=== PATIENT | female | born 1960 | race Caucasian/White ===

== ENCOUNTER 2019-10-20 05:22 | Emergency (ER) | payer OTHER, SELFPAY ==
[2019-10-20 05:30] VITALS: BP 158/52; PULSE 95; RESP 18; TEMP 36.5; O2SAT 100
--- NOTE | 2019-10-20 05:32 | ED.ALLEREA ---
HPI - Allergic Reaction General Chief complaint: Allergic Reaction Stated complaint: ITCHING Time Seen by Provider: 10/20/19 05:27 Source: patient Mode of arrival: ambulatory Limitations: no limitations History of Present Illness HPI narrative: Patient is a 59-year-old female who presents to the emergency department with complaint of itching. Patient had onset of diffuse itching approximately 3 hours ago. Patient took Paxil and thinks perhaps that may have caused her itching. Patient was started on Paxil by Dr. Banuelos for her anxiety at her recent appointment. Patient took her first dose early this morning. Patient reports having been on Paxil for approximately 10 years previously for her anxiety and was recently restarted on the medication. Patient denies any rash, respiratory symptoms, nausea/vomiting, lip or throat swelling. Patient denies any other environmental exposures. She reports she is taking [id number] treatment for a yeast infection, but it is medication she has also used in the past without issues as well. Patient did not try Benadryl or other medication prior to coming to the emergency department. complaint: other (itching) Onset (ago): hour(s) Exposure: medication Symptoms: itching Treatment prior to arrival: none Previous Allergic Reaction History: none Related Data Home Medications Medication Instructions Recorded Confirmed acetaminophen 300 mg-codeine 60 mg 1 tablet PO TID PRN 10/16/19 10/16/19 tablet alprazolam 2 mg tablet 2 mg PO QID tablet 10/16/19 10/16/19 Allergies Allergy/AdvReac Type Severity Reaction Status Date / Time Penicillins Allergy Intermediate Rash Verified 10/16/19 15:20 sumatriptan Allergy Intermediate Rash Verified 10/16/19 15:20 Review of Systems Review of Systems: All systems reviewed & are unremarkable except as noted in HPI and below ENT: Denies change in voice and Denies nasal discharge Respiratory: Respiratory: Reports cough (Chronic smokers) and Denies dyspnea Gastrointestinal: Gastrointestinal: Denies nausea and Denies vomiting Integumentary/Breasts: Skin/Breast: Reports pruritus and Denies rash Allergic/Immunologic: Allergic/Immunologic: Denies urticaria, Denies itchy eyes, Denies lip swelling, Denies seasonal rhinorrhea, Denies throat swelling, Denies tongue swelling and Denies wheezing PMFSH Past Medical History Medical History Aneurysm of left carotid artery Anxiety Arthritis Bulging disc Chronic constipation COPD (chronic obstructive pulmonary disease) Depression Emphysema lung Fibromyalgia HTN (hypertension) Hypothyroid Mitral valve prolapse Multiple sclerosis Post-menopausal SVT (supraventricular tachycardia) Throat cancer Surgical History Surgical History Hx of hysterectomy Hx of tonsillectomy Intestinal bypass and anastomosis status Social History Social History Smoking packs per day: 1 Smoking cigarettes per day: 20.0 Years smoked: 40 Smoking pack-years: 40.00 Smoking status: Current every day smoker Tobacco type: cigarettes Alcohol intake: former Substance use: never Substance use type: does not use Additional occupation/education comments: On disability for her back, cancer and aneurysm Gender identity (if verbalized by the patient): Female Exam Const: General: cooperative, no acute distress and alert Nutritional Appearance: well nourished Orientation/consciousness: patient oriented x3 Limitations: no limitations Resp: Effort & Inspection: normal respiratory effort Auscultation: wheezes scattered wheezes Cardio: Rate: regular rate Rhythm: regular rhythm GI: GI Palp: Yes Soft to palpation and No Tenderness to palpation present (GI) Auscultation: normal bowel sounds Skin: General skin exam: normal color Rashes: no ra
[2019-10-20 06:11] VITALS: BP 142/77; PULSE 72; RESP 18; O2SAT 98
== END 2019-10-20 06:12 | disposition home or self-care (01) ==
PROVIDERS: Emergency Provider Emergency Medicine; PCP Family Medicine
DX: L29.9 Pruritus, unspecified (principal); F41.9 Anxiety disorder, unspecified; M19.90 Unspecified osteoarthritis, unspecified site; J43.9 Emphysema, unspecified; F32.9 Major depressive disorder, single episode, unspecified; M79.7 Fibromyalgia; I10 Essential (primary) hypertension; I34.1 Nonrheumatic mitral (valve) prolapse; G35 Multiple sclerosis; F17.210 Nicotine dependence, cigarettes, uncomplicated; C14.0 Malignant neoplasm of pharynx, unspecified; Z85.819 Personal history of malignant neoplasm of unspecified site of lip, oral cavity, and pharynx
CPT/HCPCS: 99281

== ENCOUNTER 2019-11-18 16:46 | Emergency (ER) | payer OTHER, SELFPAY ==
--- NOTE | ~2019-11-18 | XR_ITS ---
EXAMINATION: XR tibia fibula RT 2V EXAM DATE: 11/18/2019 17:21 INDICATION: Dropped an object on right lower leg. Right leg pain. Initial encounter. TECHNIQUE: Right tibia/fibula frontal and lateral projections obtained and reviewed. There is no arely or study for comparison. FINDINGS: Right tibial and fibular shafts unremarkable. There are no acute fractures or dislocations identified. There is no subcutaneous gas. The soft tissue is unremarkable. There are no radiopaq ue foreign bodies. IMPRESSION: 1. Right tibia/fibula exam without acute osseous findings. Reviewed, dictated and finalized at location A.
[2019-11-18 17:02] VITALS: BP 108/52; PULSE 80; RESP 18; TEMP 37.7; O2SAT 100
--- NOTE | 2019-11-18 17:04 | ED.GENADULT ---
HPI - General Adult General Chief complaint: Extremity Injury, Lower Stated complaint: possible broken right leg Time Seen by Provider: 11/18/19 17:04 Source: patient Mode of arrival: ambulatory Limitations: no limitations History of Present Illness HPI narrative: 59-year-old female patient presents to the [facility] with complaints of right lower leg pain x1 hour. Patient states that she was in her kitchen and states that she dropped her tin cup onto her right mays. Patient states that she heard a crack when this happened. Patient states that she has been able to walk on her leg with a steady ambulation. Denies taking anything for the pain prior to arrival. Denies any numbness or tingling to the foot ankle or toes. Patient states that she thinks she might of broken her leg. Related Data Home Medications Medication Instructions Recorded Confirmed acetaminophen 300 mg-codeine 60 mg 1 tablet PO TID PRN 10/16/19 10/16/19 tablet alprazolam 2 mg tablet 2 mg PO QID tablet 10/16/19 10/16/19 Allergies Allergy/AdvReac Type Severity Reaction Status Date / Time Penicillins Allergy Intermediate Rash Verified 11/18/19 16:54 sumatriptan Allergy Intermediate Rash Verified 11/18/19 16:54 Review of Systems Review of Systems: Narrative: CONSTITUTIONAL: Denies fever, chills, or sweats. EYES: Denies visual changes, redness, or discharge. ENT: Denies rhinorrhea, congestion, sore throat, or otalgia. CARDIOVASCULAR: Denies chest pain, palpitations, or edema. RESPIRATORY: Denies cough or dyspnea. GASTROINTESTINAL: Denies abdominal pain, nausea, vomiting, or diarrhea. GENITOURINARY: Denies dysuria or hematuria. SKIN: Denies rash or itching. MUSCULOSKELETAL: Denies back pain, joint pain, or myalgia. Positive right lower leg pain x1 hour NEUROLOGIC: Denies headache, numbness, or weakness. PSYCHIATRIC: Denies anxiety or depression. [facility] Past Medical History Medical History Aneurysm of left carotid artery Anxiety Arthritis Bulging disc Chronic constipation COPD (chronic obstructive pulmonary disease) Depression Emphysema lung Fibromyalgia HTN (hypertension) Hypothyroid Mitral valve prolapse Multiple sclerosis Post-menopausal SVT (supraventricular tachycardia) Throat cancer Surgical History Surgical History Hx of hysterectomy Hx of tonsillectomy Intestinal bypass and anastomosis status Family History Family History Father Cerebrovascular accident Heart disease Diabetes mellitus Social History Social History Smoking packs per day: 1 Smoking cigarettes per day: 20.0 Years smoked: 40 Smoking pack-years: 40.00 Smoking status: Current every day smoker Tobacco type: cigarettes Alcohol intake: former Substance use: never Substance use type: does not use Additional occupation/education comments: On disability for her back, cancer and aneurysm Gender identity (if verbalized by the patient): Female Comments At the time of my signature I agree with nursing past medical history, surgical, social, and family history. There is no relevant family history pertinent to the presenting complaint. Exam Narrative: Exam Narrative: GENERAL: Well-appearing, well-nourished, and in no acute distress. HEAD: Normocephalic, atraumatic. EYES: PERRLA and EOMI. ENT: Nares clear, no rhinorrhea or epistaxis. Mucous membranes moist. NECK: Supple. No lymphadenopathy CHEST: Clear to auscultation. No respiratory distress. HEART: Regular rate and rhythm. No murmur heard. Normal peripheral pulses. ABDOMEN: Soft, nontender, nondistended, normal active bowel sounds. EXTREMITIES: Normal range of motion. No edema. Patient complains of pain to the anterior mays area of the right leg. There is no ecchymosis, swelli
== END 2019-11-18 17:35 | disposition home or self-care (01) ==
PROVIDERS: Emergency Provider Nurse Practitioner Family; PCP Family Medicine
DX: S80.11XA Contusion of right lower leg, initial encounter (principal); J44.9 Chronic obstructive pulmonary disease, unspecified; I10 Essential (primary) hypertension; E03.9 Hypothyroidism, unspecified; Z85.21 Personal history of malignant neoplasm of larynx; F17.210 Nicotine dependence, cigarettes, uncomplicated; W22.8XXA Striking against or struck by other objects, initial encounter
CPT/HCPCS: 73590; 99213; G0463

== ENCOUNTER 2020-01-05 12:18 | Emergency (ER) | payer OTHER, SELFPAY ==
--- NOTE | ~2020-01-05 | XR_ITS ---
XR chest 2V DATE: 01/05/2020 14:02 INDICATION: Shortness of breath. Anxiety. History of COPD. History of mitral valve prolapse. TECHNIQUE: PA and lateral views COMPARISON: 10/17/2017 CT pulmonary scan two-view chest FINDINGS: Left subclavian Port-A-Cath catheter is noted, catheter tip overlying the mid to upper righ t atrial area. The lungs are moderately hyperinflated but clear of infiltrate or consolidation. There is mild bilate ral apical capping. No pulmonary mass lesion is evident. No hilar or mediastinal enlargement. Normal heart size. Abdominal and thoracic aortic calcification. Diffuse osteopenia. IMPRESSION: Bilateral hyperinflation consistent with COPD clinical diagnosis No active cardiac pulmonary disease Left subclavian Port-A-Cath catheter tip overlying the mid to upper right atrium Reviewed, dictated and finalized at location A. IMPRESSION: Bilateral hyperinflation consistent with COPD clinical diagnosis No active cardiac pulmonary disease Left subclavian Port-A-Cath catheter tip overlying the mid to upper right atriu m
[2020-01-05 12:30] VITALS: BP 198/88; PULSE 105; RESP 16; TEMP 36.6; O2SAT 98
--- NOTE | 2020-01-05 13:51 | ECG_ITS ---
Measurements Intervals [place] Rate: 92 P: 80 MN: 152 QRS: 66 QRSD: 91 T: 56 QT: 372 QTc: 462 Interpretive Statements SINUS RHYTHM POSSIBLE LEFT ATRIAL ENLARGEMENT INCOMPLETE RIGHT BUNDLE BRANCH BLOCK BORDERLINE ST ABNORMALITY- ANTEROLAT/INF LEADS BASELINE ARTIFACT- I, II, III, AVR, AVL ,AVF, V1-V2 BORDERLINE ECG Electronically Signed On 01-05-2020 15:15:21 CDT by Giovany Jaramillo D.O.
--- NOTE | 2020-01-05 13:56 | ED.RECABL ---
HPI - Recheck/Abnormal Lab/Rx General Chief Complaint: Recheck/Abnormal Lab/Rx Stated Complaint: anxiety Time Seen by Provider: 01/05/20 13:26 Source: patient Mode of arrival: ambulatory Limitations: no limitations History of Present Illness HPI narrative: This is a 59-year-old female that presents the emergency department for increasing anxiety since yesterday. Reports she has been out of her anxiety medication. Has an appointment to follow-up with her primary on Sunday, but could not wait until then. Reports since yesterday she has felt anxious with chest pressure and tingling in her hands. Reports she feels like she is hyperventilating and is short of breath. Also reports that she has had a sore throat for years. Reports history of throat cancer, but is not currently on chemotherapy due to insurance reasons. Denies fever. Related Data Home Medications Medication Instructions Recorded Confirmed acetaminophen 300 mg-codeine 60 mg 1 tablet PO TID PRN 10/16/19 11/18/19 tablet alprazolam 2 mg tablet 2 mg PO QID tablet 10/16/19 11/18/19 acetaminophen 01/05/20 acetaminophen-codeine tablet 01/05/20 buspirone mg 01/05/20 cyclobenzaprine mg 01/05/20 hydroxyzine HCl 01/05/20 ketorolac 01/05/20 sertraline mg 01/05/20 Allergies Allergy/AdvReac Type Severity Reaction Status Date / Time Penicillins Allergy Intermediate Rash Verified 01/05/20 12:38 sumatriptan Allergy Intermediate Rash Verified 01/05/20 12:38 tramadol Allergy Unknown Verified 01/05/20 12:38 Review of Systems Review of Systems: Narrative: CONSTITUTIONAL: Denies fever ENT: Reports sore throat CARDIOVASCULAR: Reports chest pain RESPIRATORY: Reports dyspnea. PSYCHIATRIC: Reports anxiety All systems reviewed & are unremarkable except as noted in HPI and below PMFSH Social History Social History Smoking packs per day: 1 Smoking cigarettes per day: 20.0 Years smoked: 40 Smoking pack-years: 40.00 Smoking status: Current every day smoker Tobacco type: cigarettes Alcohol intake: former Substance use: never Substance use type: does not use Additional occupation/education comments: On disability for her back, cancer and aneurysm Gender identity (if verbalized by the patient): Female Exam Narrative: Exam Narrative: GENERAL: Well-appearing, thin, and in no acute distress. HEAD: Normocephalic, atraumatic. EYES: EOMI. ENT: Nares clear, no rhinorrhea or epistaxis. Mucous membranes moist. Oropharynx without tonsillar hypertrophy. White patches noted in the oropharynx. Bilateral TMs pearly pizarro non-bulging NECK: Supple. No adenopathy or masses. No carotid bruits or JVD CHEST: Clear to auscultation. No respiratory distress. No wheezes rales or rhonchi HEART: Regular rate and rhythm. No murmur heard. Normal peripheral pulses. EXTREMITIES: Normal range of motion. No edema. SKIN: Warm, dry, no rash. NEURO: No focal deficits. Alert and oriented x3. PSYCH: Anxious Course Vital Signs Vital signs: Vital Signs Temperature 97.9 F 01/05/20 12:30 Pulse Rate 105 H 01/05/20 12:30 Respiratory Rate 16 01/05/20 12:30 Blood Pressure 198/88 H 01/05/20 12:30 Pulse Oximetry 98 01/05/20 12:30 Temperature 97.9 F 01/05/20 12:30 Pulse Rate 105 H 01/05/20 12:30 Respiratory Rate 16 01/05/20 12:30 Blood Pressure 198/88 H 01/05/20 12:30 Pulse Oximetry 98 01/05/20 12:30 MDM - Recheck/Abnormal Lab/Rx MDM Narrative Medical decision making narrative: Patient presents to the emergency department for increasing anxiety since yesterday. Reports chest pain, shortness of breath, and tingling in her hands. Reports she has been out of her anxiety medication. Patient's blood pressure elevated on arrival to 198/88. Patient given Ativan with improvement in her symptoms. Most recent blood pressure in the 160s systolic. Reports she used to be on blood pressure medication b
[2020-01-05 14:30] VITALS: BP 211/90; PULSE 100; RESP 16; O2SAT 98
[2020-01-05 14:43] LABS: Basophils Percent Auto 0.4 % (0.2-1.2); Eosinophils Percent Auto 0.4 % (0-4.4); Hematocrit 37.4 % (37.0-47.0); Hemoglobin 12.9 g/dL (12.0-15.0); Immature Granulocyte Absolute 0.02 K/mm3 (0.00-0.031); Immature Granulocyte Percent A 0.3 % (0-0.5); Lymphocytes Absolute Auto 1.05 K/mm3 (0.9-3.2); Lymphocytes Percent Auto 15.2 % (18.3-44.2); Mean Corpuscular HGB Conc 34.5 g/dl (32-36); Mean Corpuscular Hemoglobin 29.8 pg (26-34); Mean Corpuscular Volume 86.4 fl (80-100); Mean Platelet Volume 8.8 fl (7.4-10.4); Monocytes Absolute Auto 0.3 K/mm3 (0.1-0.6); Monocytes Percent Auto 4.6 % (2.6-8.5); Neutrophils Absolute Auto 5.5 K/mm3 (1.3-6.7); Neutrophils Percent Auto 79.1 % (45.5-73.1); Platelet Count Result 354 k/mm3 (150-375); Red Blood Count 4.33 M/mm3 (4.2-5.4); Red Cell Distribution Width 13.1 % (11.5-14.5); White Blood Count 6.9 K/mm3 (4.5-10.0)
[2020-01-05 14:52] LABS: Prothrombin Time 12.7 Seconds (11.1-14.7)
[2020-01-05 14:53] LABS: Partial Thromboplastin Time 31.9 SECONDS (22.3-36.8)
[2020-01-05 14:55] LABS: Blood Urea Nitrogen 8 mg/dL (7-17); Calcium 10.3 mg/dL (8.4-10.2); Carbon Dioxide 25 mmol/L (22-30); Chloride 94 mmol/L (98-107); Estimated Glomerular Filt Rate > 60; Glucose 119 mg/dL (65-105); Potassium 3.9 mmol/L (3.4-5.0); Sodium 131 mmol/L (137-145)
[2020-01-05 15:07] LABS: Troponin I < 0.012 ng/mL (0.000-0.034)
[2020-01-05 15:30] VITALS: BP 168/94; PULSE 90; RESP 16; O2SAT 97
[2020-01-05 15:58] LABS: Add Urine Microscopic? YES; Appearance Urine Clear (Clear); Bacteria Urine Trace /hpf; Bilirubin Urine Negative (Negative); Blood Urine Negative (Negative); Color Urine Straw (Yellow); Glucose Urine UA Negative (Negative); Ketones Urine Negative (Negative); Leukocyte Esterase Ur 1+ LEU/UL (Negative); Mucus Urine Rare /lpf; Nitrate Urine Negative (Negative); Protein Urine Negative (Negative); RBC Urine 0-2 /hpf (0-2); Specific Grav Ur 1.008 (1.001-1.035); Squamous Epithelial Cell Urine Moderate /hpf (Few); Urobilinogen Urine Negative mg/dL (<2.0)
[2020-01-05 17:00] VITALS: BP 160/80; PULSE 80; RESP 16; O2SAT 98
== END 2020-01-05 17:00 | disposition home or self-care (01) ==
PROVIDERS: Physician Assistant; Emergency Provider Emergency Medicine; PCP Family Medicine
DX: F41.9 Anxiety disorder, unspecified (principal); F17.210 Nicotine dependence, cigarettes, uncomplicated
CPT/HCPCS: 36415; 71046; 80048; 81001; 84484; 85025; 85610; 85730; 87880; 93005; 96374; 96375; 99284; J0131; J2060

== ENCOUNTER 2020-02-08 04:04 | Inpatient (IN) | payer OTHER, SELFPAY ==
[2020-02-08] VITALS (19 sets, daily range): BP systolic 92–171; BP diastolic 47–93; PULSE 70–89; RESP 12–26; TEMP 36.4–36.9; O2SAT 97–100
--- NOTE | ~2020-02-08 | XR_ITS ---
EXAMINATION: XR chest 1V portable DATE: 02/08/2020 04:[address] INDICATION: ST elevation myocardial infarction. TECHNIQUE: A single frontal view of the chest was obtained. COMPARISON: Chest 2 views 01/05/2020, chest CT 10/17/2017 FINDINGS: The chest demonstrates clear lungs without pneumonia, pleural effusion, or pneumothorax. Th e heart size is normal. There is a left subclavian port with tip in right atrium. IMPRESSION: 1. No acute cardiopulmonary disease. Reviewed, dictated and finalized at location A.
--- NOTE | 2020-02-08 03:56 | ED.CHESTPAIN ---
HPI - Chest Pain General Chief Complaint: Chest Pain Stated Complaint: anxiety Source: patient and EMS Mode of arrival: EMS Limitations: no limitations History of Present Illness HPI narrative: Patient is a 59-year-old female with a history of COPD, SVT, anxiety who presents for evaluation of chest pain. Patient reportedly called EMS after experiencing 2 days of chest pain, worse this evening, associated with nausea and diaphoresis. Patient describes the pain as a pressure over the center of her chest. Patient has no history of heart attack. 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 Patient denies any pleuritic type chest pain. She has had some associated shortness of breath. EMS called STEMI in the field due to elevation in V2, V3. Patient was given aspirin and nitroglycerin in the field without improvement in her symptoms. Related Data Home Medications Medication Instructions Recorded Confirmed acetaminophen 300 mg-codeine 60 mg 1 tablet PO TID PRN 10/16/19 11/18/19 tablet alprazolam 2 mg tablet 2 mg PO QID tablet 10/16/19 11/18/19 acetaminophen 01/05/20 acetaminophen-codeine tablet 01/05/20 buspirone mg 01/05/20 cyclobenzaprine mg 01/05/20 hydroxyzine HCl 01/05/20 ketorolac 01/05/20 sertraline mg 01/05/20 Allergies Allergy/AdvReac Type Severity Reaction Status Date / Time Penicillins Allergy Intermediate Rash Verified 02/08/20 04:11 sumatriptan Allergy Intermediate Rash Verified 02/08/20 04:11 azithromycin Allergy Mild itching Verified 02/08/20 04:11 [From Zithromax Z-Charan] tramadol Allergy Unknown Verified 02/08/20 04:11 Review of Systems Review of Systems: Narrative: CONSTITUTIONAL: Denies fever, chills, reports diaphoresis EYES: Denies visual changes, redness, or discharge. ENT: Denies rhinorrhea, congestion, sore throat, or otalgia. CARDIOVASCULAR: Reports chest pain and palpitations RESPIRATORY: Denies cough or dyspnea. GASTROINTESTINAL: Denies abdominal pain, reports nausea and vomiting GENITOURINARY: Denies dysuria or hematuria. SKIN: Denies rash or itching. MUSCULOSKELETAL: Denies back pain, joint pain, or myalgia. NEUROLOGIC: Denies headache, numbness, or weakness. PMFSH Past Medical History Medical History Aneurysm of left carotid artery Anxiety Arthritis Bulging disc Chronic constipation COPD (chronic obstructive pulmonary disease) Depression Emphysema lung Fibromyalgia HTN (hypertension) Hypothyroid Mitral valve prolapse Multiple sclerosis Post-menopausal SVT (supraventricular tachycardia) Throat cancer Surgical History Surgical History Hx of hysterectomy Hx of tonsillectomy Intestinal bypass and anastomosis status Social History Social History Smoking packs per day: 1 Smoking cigarettes per day: 20.0 Years smoked: 40 Smoking pack-years: 40.00 Smoking status: Current every day smoker Tobacco type: cigarettes Alcohol intake: former Substance use: never Substance use type: does not use Additional occupation/education comments: On disability for her back, cancer and aneurysm Gender identity (if verbalized by the patient): Female Exam Narrative: Exam Narrative: GENERAL: Awake, alert, conversant, uncomfortable appearing, diaphoretic HEAD: Normocephalic, atraumatic. EYES: PERRLA and EOMI. ENT: Nares clear, no rhinorrhea or epistaxis. Mucous membranes moist. NECK: Supple. CHEST: No respiratory distress, breathing even and non labored HEART: Regular rate, sinus rhythm ABDOMEN:Non distended, non tender EXTREMITIES: Normal range of motion. No edema. SKIN: Pale, no rash. NEURO:No focal deficits. Alert and oriented x3 Course Vital Signs Vital signs: Vital Signs Temperature 36.4 C 02/08/20 04:00 Pulse R
--- NOTE | 2020-02-08 04:14 | PC.NURSE ---
0413 first nitro given to pt. VS: 77, 16, 100%RA, 132/78 0414 4mg zofran given 0416 2mg morphine given, 9/10 pain prior to giving morphine to pt 0416 VS: 74, 15, 100%RA, 153/74 0419 1920unit heparin bolus given to pt 0420 pt states pain still 9/10, pt given another nitro 0426 pt states pain is gone, just heaviness remains VS 77, 17R, 100% 2L, 112/70
--- NOTE | 2020-02-08 04:15 | ECG_ITS ---
Measurements Intervals [place] Rate: 75 P: 83 TN: 146 QRS: 74 QRSD: 89 T: 70 QT: 433 QTc: 484 Interpretive Statements SINUS RHYTHM ANTERIOR ST ELEVATION MYOCARDIAL INFARCT- ACUTE ABNORMAL ECG Electronically Signed On 02-08-2020 8:02:23 CDT by Giovany Jaramillo D.O.
--- NOTE | 2020-02-08 04:15 | ECG_ITS ---
Measurements Intervals [place] Rate: 75 P: 83 DE: 124 QRS: 73 QRSD: 94 T: 67 QT: 434 QTc: 487 Interpretive Statements SINUS RHYTHM ANTERIOR ST ELEVATION MYOCARDIAL INFARCT- ACUTE BASELINE ARTIFACT- AVL, V4-V6 ABNORMAL ECG Electronically Signed On 02-08-2020 8:01:11 CDT by Giovany Jaramillo D.O.
[2020-02-08 04:25] LABS: Basophils Absolute Auto 0.1 K/mm3 (0.0-0.1); Basophils Percent Auto 0.9 % (0.2-1.2); Eosinophils Absolute Auto 0.2 K/mm3 (0-0.3); Eosinophils Percent Auto 2.2 % (0-4.4); Hematocrit 34.9 % (37.0-47.0); Hemoglobin 12.1 g/dL (12.0-15.0); Immature Granulocyte Absolute 0.01 K/mm3 (0.00-0.031); Immature Granulocyte Percent A 0.1 % (0-0.5); Lymphocytes Absolute Auto 2.55 K/mm3 (0.9-3.2); Lymphocytes Percent Auto 37.6 % (18.3-44.2); Mean Corpuscular HGB Conc 34.7 g/dl (32-36); Mean Corpuscular Hemoglobin 29.5 pg (26-34); Mean Corpuscular Volume 85.1 fl (80-100); Monocytes Absolute Auto 0.5 K/mm3 (0.1-0.6); Monocytes Percent Auto 7.2 % (2.6-8.5); Neutrophils Absolute Auto 3.5 K/mm3 (1.3-6.7); Platelet Count Result 332 k/mm3 (150-375); Red Cell Distribution Width 13.1 % (11.5-14.5); White Blood Count 6.8 K/mm3 (4.5-10.0)
[2020-02-08 04:36] LABS: Prothrombin Time 12.8 Seconds (11.1-14.7)
[2020-02-08 04:37] LABS: Alanine Aminotransferase 15 U/L (4-35); Albumin Level 4.9 g/dL (3.5-5.1); Alkaline Phosphatase 96 U/L (38-126); Anion Gap 11 mmol/L (8-16); Aspartate Amino Transferase 27 U/L (14-36); Bilirubin,Total 0.8 mg/dL (0.2-1.3); Blood Urea Nitrogen 13 mg/dL (7-17); Calcium 11.2 mg/dL (8.4-10.2); Carbon Dioxide 26 mmol/L (22-30); Chloride 91 mmol/L (98-107); Cholesterol 322 mg/dL (0-200); Estimated CRCL calculation 67 ml/min; Estimated Glomerular Filt Rate > 60; Glucose 131 mg/dL (65-105); HDL Direct 83 mg/dL; Partial Thromboplastin Time 32.6 SECONDS (22.3-36.8); Potassium 3.6 mmol/L (3.4-5.0); Sodium 128 mmol/L (137-145); Triglycerides 107 mg/dL (<150)
[2020-02-08 04:48] LABS: LDL Cholesterol Direct 200 mg/dL
[2020-02-08 04:52] LABS: Troponin I 0.073 ng/mL (0.000-0.034)
--- NOTE | 2020-02-08 05:37 | WPDCARDPROC ---
Cardiac Cath Procedure Note Date of procedure:: 02/08/20 Performing physician:: Erich Shelton MD Indication:: Chest pain with evidence of ST-elevation [place] Brief clinical history:: this is a 59-year-old woman unknown to us previous to this examination. She presented to the emergency room this morning with a history of chest pain for 2 days. The pain worsened in the middle the night and so she came to the emergency room for evaluation where upon her ECG was found show evidence of acute anterior wall infarction. According to the ED physician no previous history of coronary disease. she does have hypertension and dyslipidemia as well as an anxiety disorder Procedure Procedure performed:: emergency coronary angiography emergency left ventriculography Sedation/Medication given:: fentanyl 50 mg Versed 4 mg case start time 5:14 a.m. case end time 5:27 a.m. sedation provided by Lester Gan RN, trained observer Access site:: right femoral Estimated blood loss:: 10-15 cc Procedure note:: patient was brought to the cardiac catheterization lab from the emergency room in the setting described above. The right femoral triangle was prepared and draped in the usual fashion. Anesthesia was provided with 1% lidocaine infiltrated locally. Using the modified Seldinger technique the femoral artery was punctured and a 6 [place]ian vascular sheath was placed. After this I used a 5 [place] FL4 catheter to engage inject the left coronary artery in multiple projections. The left coronary catheter was then exchanged for a 5 [place] JR4 catheter which was used to engage inject the right coronary artery. After this the cineangiograms were reviewed and a 5 [place] angled pigtail catheter was then used to perform a left ventriculogram and document left-sided hemodynamics and pullback pressures across the aortic valve. Following this the case was terminated. The sheath was sutured into position and patient was taken to the ICU for sheath removal and post cath recovery. Findings:: hemodynamics: The central aortic pressure is 172/68 left ventricle 170/3 end-diastolic pressure of 15. There is no systolic Gradient upon pullback from the aortic valve. The left ventricle is normal in size there is a large area of akinesis involving the apical 1/2 of the LV. Atypical picture of apical ballooning is identified the global ejection fraction is 35-40% by visual estimation. The left main coronary artery is widely patent the LAD is a moderate caliber vessel extending down to the apex the LAD is somewhat tortuous but there is no atherosclerotic stenosis throughout the vessel or its branches. There is [place] [address] down to the apex. Circumflex is a medium caliber vessel giving rise to the marginal branches the circumflex system is angiographically non diseased. Right coronary artery is a medium caliber vessel which is dominant to the posterior circulation the right coronary artery is also angiographically non disease. Conclusion:: 1. Right coronary dominant circulation with no evidence of coronary disease 2. large area of left ventricular akinesis involving the apical half of the LV a pattern typical of takotsubo cardiomyopathy 3. hypertension 4. tobacco abuse 5. dyslipidemia Erich Shelton MD FACC
--- NOTE | 2020-02-08 05:44 | PM.IMHP ---
H&P: HPI History of Present Illness Date/Time: date of service:02/08/20 05:44 Chief complaint: Stemi Narrative: Megan Frye is a 59 year old female With no previous history of coronary artery disease who presented to the emergency room in the middle of the night with chest pain. The ER physician called me indicating that patient has had intermittent chest pain for about 2 days the symptoms became worse in the middle the night so she came in to be evaluated. Her ECG appears to show evidence of acute anterior wall artery injury and for this reason angiography has been requested. The patient apparently has a history of mild non flow limiting carotid artery disease, hypertension dyslipidemia and longstanding cigarette smoking. There is also anxiety disorder Review of Systems Review of Systems: ROS unobtainable: Yes unobtainable due to medical condition PMFSH Past Medical History Medical History Aneurysm of left carotid artery Anxiety Arthritis Bulging disc Chronic constipation COPD (chronic obstructive pulmonary disease) Depression Emphysema lung Fibromyalgia HTN (hypertension) Hypothyroid Mitral valve prolapse Multiple sclerosis Post-menopausal SVT (supraventricular tachycardia) Throat cancer Surgical History Surgical History Hx of hysterectomy Hx of tonsillectomy Intestinal bypass and anastomosis status Social History Social History Smoking packs per day: 1 Smoking cigarettes per day: 20.0 Years smoked: 40 Smoking pack-years: 40.00 Smoking status: Current every day smoker Tobacco type: cigarettes Alcohol intake: former Substance use: never Substance use type: does not use Additional occupation/education comments: On disability for her back, cancer and aneurysm Gender identity (if verbalized by the patient): Female Meds Home Medications and Allergies Home Medications Medication Instructions Recorded Confirmed Type acetaminophen 300 mg-codeine 60 mg 1 tablet PO TID PRN 10/16/19 11/18/19 History tablet alprazolam 2 mg tablet 2 mg PO QID tablet 10/16/19 11/18/19 History acetaminophen 01/05/20 History acetaminophen-codeine tablet 01/05/20 History buspirone mg 01/05/20 History cyclobenzaprine mg 01/05/20 History hydroxyzine HCl 07/13/20 History ketorolac 01/05/20 History sertraline mg 01/05/20 History cefdinir 300 mg capsule 300 mg PO Q12H 10 Days #20 cap 02/05/20 Rx Allergies Allergy/AdvReac Type Severity Reaction Status Date / Time Penicillins Allergy Intermediate Rash Verified 02/08/20 04:11 sumatriptan Allergy Intermediate Rash Verified 02/08/20 04:11 azithromycin Allergy Mild itching Verified 02/08/20 04:11 [From [employer] [facility]] tramadol Allergy Unknown Verified 02/08/20 04:11 Vital Signs Vital Signs - 24 hr 02/08/20 04:00 02/08/20 04:07 02/08/20 04:30 Temperature 36.4 C Pulse Rate 76 71 77 Respiratory Rate 15 13 14 Blood Pressure 132/78 115/63 Pulse Oximetry 100 100 100 02/08/20 05:01 Temperature Pulse Rate 72 Respiratory Rate 12 Blood Pressure 139/71 Pulse Oximetry 100 Exam Const: General: uncomfortable Other: very thin anxious white female HENMT: Mouth: Yes moist mucous membranes Eyes: Sclera: sclerae normal Pupils: Equal, round and reactive pupils present Neck: Neck: no JVD Thyroid: thyroid normal Other: carotid upstrokes are normal and are free of bruits Resp: Effort & Inspection: normal respiratory effort Auscultation: clear to auscultation bilaterally Cardio: Rate: regular rate and tachycardic Rhythm: regular rhythm GI: GI Palp: Yes Soft to palpation Auscultation: normal bowel sounds Other: abdomen thin and scaphoid no visceromegaly no abdominal bruit Skin: General skin exam: normal color Neuro: Cognition (Neuro): normal cognit
--- NOTE | 2020-02-08 06:27 | ADMGEN ---
This patient, Megan Frye, was admitted to Intensive Care Unit-11. Patient/family oriented to hospital policies and general routines including ID bracelet, bed and alarms, visiting hours, pain management, procedures, bathroom and other care routines, personal items, smoking policy, room service/diet, and visiting hours. Valuables list has been completed. Information on how to activate the Rapid Response Team has been discussed. Patient/Family are encouraged to report perceived risks to care and to ask questions if they do not understand what they are told or what they should do.
[2020-02-08 07:33] LABS: Partial Thromboplastin Time 35.8 SECONDS (22.3-36.8)
--- NOTE | 2020-02-08 08:32 | WPDCNINT ---
Assessment and Plan Assessment and plan (1) ST elevation (STEMI) myocardial infarction: Code(s): I21.3 - ST elevation (STEMI) myocardial infarction of unspecified site Status: Acute Assessment and Plan: status post angiogram which showed Right coronary dominant circulation with no evidence of coronary disease and large area of left ventricular akinesis involving the apical half of the LV a pattern typical of takotsubo cardiomyopathy currently chest pain-free sheath to be removed depending on PTT Coreg and ramipril started check echocardiogram (2) COPD (chronic obstructive pulmonary disease): Code(s): J44.9 - Chronic obstructive pulmonary disease, unspecified Status: Acute Assessment and Plan: does not appear in any exacerbation patient is not on oxygen or inhalers at home. Will order p.r.n. bronchodilators (3) Hypothyroid: Code(s): E03.9 - Hypothyroidism, unspecified Status: Acute Assessment and Plan: check TSH (4) Anxiety: Code(s): F41.9 - Anxiety disorder, unspecified Status: Acute Assessment and Plan: patient X appears to have chronic side in chronic use of benzodiazepine. Will continue at this time to prevent any withdrawal (5) Essential (primary) hypertension: Code(s): I10 - Essential (primary) hypertension Status: Acute Assessment and Plan: Coreg and ramipril started. Monitor blood pressure and adjust medication accordingly p.r.n. IV Lopressor and hydralazine also ordered (6) Malignant neoplasm of throat: Code(s): C14.0 - Malignant neoplasm of pharynx, unspecified Status: Acute Assessment and Plan: patient is supposed to start treatment as an outpatient soon. Will defer any inpatient intervention at this time (7) Hyponatremia: Code(s): E87.1 - Hypo-osmolality and hyponatremia Status: Acute Assessment and Plan: patient reports history of chronic hyponatremia. Sodium 128 continue normal saline and monitor (8) Cerebrovascular disease: Code(s): I67.9 - Cerebrovascular disease, unspecified Status: Acute Assessment and Plan: Start aspirin and statin Manager Integrity Consult Note Consult date: 02/08/20 Time Seen: 08:30 HPI: Megan Frye is a 59 year old female with past medical history of anxiety, throat cancer, cerebrovascular disease, COPD and no documented history of coronary disease presented with chief complaint of chest pain to ED earlier this morning. Patient told me that she was unable to fill her Xanax prescription which led her anxiety getting worse. She states that she has chronic anxiety since she was a teenager and has been on Xanax all her life which she takes regularly throughout the day. She had trouble filling her prescription which led to her anxiety acting up. She felt nauseous and short of breath and had chest pain which was pressure, all around her chest, INR 10 severe radiated to her back. Pain was associated with nausea, dizziness and lightheadedness. Patient when arrived in the ED had positive troponin EKG changes and was diagnosed with STEMI. Patient was taken emergently to cardiac matlab developer for angiogram which was negative for any coronary artery disease and showed apical ballooning consistent with takotsubo cardiomyopathy. No interventions were done and patient now admitted to ICU for further evaluation and management. At this time patient denies any chest pain or any other symptom but continues to ask for her Xanax to be resumed and complains of headache which are chronic which she takes Tylenol No. 4 but feels that it does not help. She told me that she has throat cancer for which she was treated with chemo and radiation in 2013 and she was told that it has returned and she is going to start treatment in next few days as an outpatient [facility]. She has a longstanding smoker and has smoked for 40 years a pac
[2020-02-08] MEDS: carvediloL 6.25 MG TABLET PO ×2 (09:08→20:06)
[2020-02-08] MEDS: ALPRAZolam 0.5 MG TABLET 2 MG PO ×3 (09:30→20:03)
[2020-02-08] MEDS: hydrALAZINE HCL 20 MG/ML VIAL IV PUSH (09:31)
[2020-02-08] MEDS: SODIUM CHLORIDE 0.9% IV 1,000 ML 75 ML IV CONT ×2 (09:31→14:03)
[2020-02-08] MEDS: ramipriL 5 MG CAPSULE PO (09:37)
[2020-02-08] MEDS: oxyCODONE/ACETAMINOPHEN 5-325 MG TABLET 1 TABLET PO ×3 (10:51→20:03)
[2020-02-08] MEDS: NEOMYCIN/POLYMYXIN/BACITRACIN OINTMENT PACKET 1 PACKET (11:58)
[2020-02-08] MEDS: ENOXAPARIN 40 MG/0.4 ML SYRINGE SUB-Q (12:02)
[2020-02-08] MEDS: PHENOL/SOD PHENO SPRAY CHERRY (*BKC) 1 SPRAY MUCOUS MEM (22:28)
[2020-02-09] VITALS (14 sets, daily range): BP systolic 99–123; BP diastolic 34–85; PULSE 54–78; RESP 14–20; TEMP 36.6–37.3; O2SAT 95–100; BMI 19.4
--- NOTE | 2020-02-09 | ECHO_ITS ---
Patient Info Name: Megan Frye Age: 59 years : 1960 Gender: Female Ht: 60 in Wt: 98 lbs BSA: 1.37 m2 HR: 65 bpm BP: 123 / 85 mmHg Heart Rhythm: Sinus Rhythm Technical Quality: Good Exam Date: 02/09/2020 8:10 AM Exam Location: [facility] Patient Status: Inpatient Admit Date: 02/08/2020 Staff Ordering Physician: Ben Mcgill MD Lawn Mower Repairer: Aniceto Bermeo, KAREN, RT Attending Provider: Erich Shelton MD Exam Type: CA echo dop color flow w con Study Info Indications I21.3 - ST elevation (STEMI) myocardial infarction of unspecified site Complete two-dimensional, color flow and Doppler transthoracic echocardiogram is performed with contrast to opacify the left ventricle and to improve the deliniation of the left ventricle endocardial borders. Summary 1. Left ventricular systolic function is moderately reduced, estimated at 35-40%. 2. Akinetic apex, apical septum apical anterior goldman. 3. There is mildly increased left ventricular wall thickness. 4. Right atrial chamber dimension is normal. 5. Linear artifact in the right atrium suggestive of catheter(s), pacemaker lead(s), or ICD lead(s). 6. There is mild mitral valve regurgitation. 7. No pulmonary hypertension, estimated pulmonary arterial systolic pressure is 33 mmHg. 8. There is small pericardial effusion. Left Ventricle Left ventricular chamber dimension is normal. Left ventricular systolic function is moderately reduced, estimated at 35-40%. There is mildly increased left ventricular wall thickness. The left ventricular diastolic function is grade I diastolic dysfunction. There is no thrombus visualized in the left ventricle. Global longitudinal strain is moderately elevated at -13 %. Akinetic apex, apical septum apical anterior goldman. Right Ventricle Right ventricular chamber dimension is normal. Right ventricular systolic function is normal. Left Atria Left atrial chamber dimension is normal. Right Atria Right atrial chamber dimension is normal. Linear artifact in the right atrium suggestive of catheter(s), pacemaker lead(s), or ICD lead(s). Aortic Valve The aortic valve is trileaflet. There is mild aortic valve sclerosis. There is no aortic valve stenosis. There is no aortic valve regurgitation. Pulmonic Valve The pulmonic valve is not well visualized. Mitral Valve The mitral valve has normal leaflets. There is mild mitral valve regurgitation. The mitral valve annulus is mildly calcified. Tricuspid Valve The tricuspid valve leaflets are normal. There is trace tricuspid valve regurgitation. No pulmonary hypertension, estimated pulmonary arterial systolic pressure is 33 mmHg. Pericardium/Pleural The pericardium appears normal. There is small pericardial effusion. Inferior Vena Cava Normal inferior vena cava with <50% collapse upon inspiration consistent with normal right atrial pressure, 5 mmHg. Aorta The aortic root size at the sinus of Valsalva is normal. Left Ventricular Outflow Tract Name Value Normal LVOT 2D LVOT Diameter 1.93 cm LVOT Doppler LVOT Peak Gradient 3 mmHg
[2020-02-09] MEDS: oxyCODONE/ACETAMINOPHEN 5-325 MG TABLET 1 TABLET PO ×6 (01:05→21:01)
[2020-02-09] MEDS: ALPRAZolam 0.5 MG TABLET 2 MG PO ×3 (01:19→16:54)
[2020-02-09] MEDS: SODIUM CHLORIDE 0.9% IV 1,000 ML 75 ML IV CONT ×2 (03:33→12:44)
[2020-02-09 04:32] LABS: Hematocrit 33.7 % (37.0-47.0); Hemoglobin 11.5 g/dL (12.0-15.0); Mean Corpuscular HGB Conc 34.1 g/dl (32-36); Mean Corpuscular Hemoglobin 29.5 pg (26-34); Mean Corpuscular Volume 86.4 fl (80-100); Mean Platelet Volume 8.5 fl (7.4-10.4); Platelet Count Result 284 k/mm3 (150-375); Red Cell Distribution Width 13.2 % (11.5-14.5); White Blood Count 9.2 K/mm3 (4.5-10.0)
[2020-02-09 04:44] LABS: Anion Gap 9 mmol/L (8-16); Blood Urea Nitrogen 13 mg/dL (7-17); Calcium 9.2 mg/dL (8.4-10.2); Carbon Dioxide 27 mmol/L (22-30); Chloride 91 mmol/L (98-107); Estimated CRCL calculation 46 ml/min; Estimated Glomerular Filt Rate > 60; Glucose 115 mg/dL (65-105); Magnesium 1.4 mg/dL (1.6-2.3); Potassium 3.7 mmol/L (3.4-5.0); Sodium 127 mmol/L (137-145)
[2020-02-09] MEDS: PHENOL/SOD PHENO SPRAY CHERRY (*BKC) 1 SPRAY MUCOUS MEM (05:07)
[2020-02-09] MEDS: PERFLUTREN LIPID MICROSPHERES 1.5 ML VIAL DILUTED TO 10 ML TOTAL VOLUME IV PUSH (09:11)
[2020-02-09] MEDS: ASPIRIN 325 MG TABLET PO (09:34)
[2020-02-09] MEDS: ATORVASTATIN 40 MG TABLET PO (09:34)
[2020-02-09] MEDS: carvediloL 6.25 MG TABLET PO ×2 (09:34→21:03)
[2020-02-09] MEDS: ramipriL 5 MG CAPSULE PO (09:35)
[2020-02-09] MEDS: ENOXAPARIN 40 MG/0.4 ML SYRINGE SUB-Q (09:35)
[2020-02-09] MEDS: MAGNESIUM SULF 2 GM/WATER 50ML 2 GM/50 ML BAG IVPB (09:48)
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
--- NOTE | 2020-02-09 12:14 | WPDINTPN ---
Progress Note: A&P Assessment and Plan (1) ST elevation (STEMI) myocardial infarction: Code(s): I21.3 - ST elevation (STEMI) myocardial infarction of unspecified site Status: Acute Assessment and Plan: status post angiogram which showed Right coronary dominant circulation with no evidence of coronary disease and large area of left ventricular akinesis involving the apical half of the LV a pattern typical of takotsubo cardiomyopathy cardiology following the patient continue carvedilol and ramipril echocardiogram has been obtained and pending continues to have atypical chest pain which could be related to anxiety (2) COPD (chronic obstructive pulmonary disease): Code(s): J44.9 - Chronic obstructive pulmonary disease, unspecified Status: Acute Assessment and Plan: does not appear in any exacerbation patient is not on oxygen or inhalers at home. continue p.r.n. bronchodilators (3) Hypothyroid: Code(s): E03.9 - Hypothyroidism, unspecified Status: Acute Assessment and Plan: TSH within normal limits (4) Anxiety: Code(s): F41.9 - Anxiety disorder, unspecified Status: Acute Assessment and Plan: patient appears to have chronic anxiety with chronic use of benzodiazepine. continue alprazolam (5) Essential (primary) hypertension: Code(s): I10 - Essential (primary) hypertension Status: Acute Assessment and Plan: continue Coreg and ramipril. Monitor blood pressure and adjust medication accordingly p.r.n. IV Lopressor and hydralazine also ordered (6) Malignant neoplasm of throat: Code(s): C14.0 - Malignant neoplasm of pharynx, unspecified Status: Acute Assessment and Plan: patient is supposed to start treatment as an outpatient soon. Will defer any inpatient intervention at this time (7) Hyponatremia: Code(s): E87.1 - Hypo-osmolality and hyponatremia Status: Acute Assessment and Plan: patient reports history of chronic hyponatremia. Sodium 128 continue normal saline and monitor (8) Cerebrovascular disease: Code(s): I67.9 - Cerebrovascular disease, unspecified Status: Acute Assessment and Plan: continue aspirin and statin (9) Hypercholesterolemia: Code(s): E78.00 - Pure hypercholesterolemia, unspecified Status: Acute Assessment and Plan: continue statin Additional Plan Discussed with pt and updated her with her conditoon and plan of care. i answered all her questions. Code Status: Full Code Critical time spent: 31 minutes D/w cardiology, okay to transfer out of ICU Due to a high probability of clinically significant, life threatening deterioration, the patient required my highest level of preparedness to intervene emergently and I personally spent this critical care time directly and personally managing the patient. This critical care time included obtaining a history; examining the patient; pulse oximetry; ordering and review of studies; arranging urgent treatment with development of a management plan; evaluation of patient's response to treatment; frequent reassessment; and discussions with other providers. It was exclusive of separately billable procedures and treating other patients and teaching time. Please see Assessment and Plan section and the rest of the note for further information on patient assessment and treatment Subjective Date/time seen: 02/09/20 12:14 Interval history: Reason for consult: chest pain, elevated troponin, EKG changes, diagnosed with STEMI. This post cardiac catheterization which showed clean coronaries, apical ballooning consistent with Takatsubu cardiomyopathy 02/09/2020: Patient seen and examined this morning in the ICU, is awake, alert, answers to questions appropriately. Patient states she is under lot of stress due to family, financial issues. Patient complains mild chest pain denies any shortnes
[2020-02-09] MEDS: ACETAMINOPHEN 325 MG TABLET 650 MG PO (18:53)
--- NOTE | 2020-02-09 21:45 | PCDIET ---
This patient, Megan Frye, was received from [ ] on 02/09/20 at 2250. Personal belongings list checked and signed. Patient/family oriented to unit policies and routines
--- NOTE | 2020-02-09 23:16 | PC.NURSE ---
This patient, Megan Frye, was transferred to [ [id number]] on 02/09/20 at 2130. Personal belongings sent with patient. Belongings list checked and signed with receiving [ ]. Report given to [ ]. Appropriate documentation sent with patient.
[2020-02-10] VITALS (13 sets, daily range): BP systolic 107–131; BP diastolic 38–60; PULSE 51–69; RESP 12–18; TEMP 36.4–37.3; O2SAT 100
[2020-02-10] MEDS: oxyCODONE/ACETAMINOPHEN 5-325 MG TABLET 1 TABLET PO ×5 (01:17→18:49)
[2020-02-10] MEDS: ALPRAZolam 0.5 MG TABLET 2 MG PO ×3 (01:19→14:33)
[2020-02-10] MEDS: SODIUM CHLORIDE 0.9% IV 1,000 ML 75 ML IV CONT (02:58)
[2020-02-10] MEDS: ACETAMINOPHEN 325 MG TABLET 650 MG PO ×2 (04:17→22:20)
[2020-02-10] MEDS: PHENOL/SOD PHENO SPRAY CHERRY (*BKC) 1 SPRAY MUCOUS MEM (04:20)
[2020-02-10 06:06] LABS: Hematocrit 29.9 % (37.0-47.0); Hemoglobin 9.9 g/dL (12.0-15.0); Mean Corpuscular HGB Conc 33.1 g/dl (32-36); Mean Corpuscular Hemoglobin 29.5 pg (26-34); Mean Platelet Volume 9.3 fl (7.4-10.4); Platelet Count Result 209 k/mm3 (150-375); Red Blood Count 3.36 M/mm3 (4.2-5.4); Red Cell Distribution Width 13.6 % (11.5-14.5)
[2020-02-10 06:21] LABS: Anion Gap 5 mmol/L (8-16); Blood Urea Nitrogen 9 mg/dL (7-17); Calcium 8.3 mg/dL (8.4-10.2); Carbon Dioxide 25 mmol/L (22-30); Chloride 100 mmol/L (98-107); Estimated CRCL calculation 53 ml/min; Estimated Glomerular Filt Rate > 60; Glucose 96 mg/dL (65-105); Magnesium 1.9 mg/dL (1.6-2.3); Sodium 130 mmol/L (137-145)
[2020-02-10] MEDS: ramipriL 5 MG CAPSULE PO (08:08)
[2020-02-10] MEDS: ASPIRIN 325 MG TABLET PO (08:08)
[2020-02-10] MEDS: carvediloL 6.25 MG TABLET PO ×2 (08:08→20:03)
[2020-02-10] MEDS: ENOXAPARIN 40 MG/0.4 ML SYRINGE SUB-Q (08:08)
[2020-02-10] MEDS: ATORVASTATIN 40 MG TABLET PO (08:08)
--- NOTE | 2020-02-10 10:12 | PC.NURSE ---
Patient requests to see RN rides supervisor. Charge nurse responded to patient room. Patient requests a staffing change r/t assigned RN. Patient noted to present as anxious and argumentative. Patient frequently uses the call light insisting that she wants a doctor to explain her condition, requesting medication for anxiety and pain, and toileting assist. RN explained patient processes r/t transfer to medical floor, administration of medication, and how the hospital utilizes internists to manage medical care during hospitalization. Patient verbalizes upset that her doctor will not be seeing her during the hospitalization, and again the RN explained the process and stated that she will follow up with her primary physician after she is discharged from the hospital. Patient continues to repeat the same questions r/t physicians assigned to her care. While RN attempts to explain the processes, patient interrupts multiple times making statements that include: No one will answer my questions ; the staff here is rude ; when did I meet you/how long have you been my nurse? ; why do my medications keep getting changed? ; who did I talk to last night about this? ; who is my doctor/why haven't I met them? ; and why do you all tell me something different? . RN continues to answer questions with being interrupted and informed that patient that all questions have been addressed and will not argue with the patient. Per charger tester, staffing changes addressed per patient request.
--- NOTE | 2020-02-10 12:06 | PCDIET ---
Patient requesting that all foods be pureed due to mouth and throat pain. Also requesting regular, unrestricted diet. Phoned Dr. Whitmore with verbal order for pureed diet, no restrictions. Ensure supplements continued.
--- NOTE | 2020-02-10 12:47 | PM.IMCN ---
Assessment and Plan Assessment and plan (1) Takotsubo cardiomyopathy: Code(s): I51.81 - Takotsubo syndrome Status: Acute Assessment and Plan: Emergent left heart catheterization showing large area of left ventricular akinesis involving the apical half of the LV a pattern typical of takotsubo cardiomyopathy. Eechocardiogram showing EF of 35-40% with akinetic apex, apical septum and apical anterior goldman. Patient started on medical management with Coreg and ramipril. (2) Chest pain: Code(s): R07.9 - Chest pain, unspecified Status: Acute Assessment and Plan: Chest pain related to anxiety and above. Patient still with some anxiety but overall appears calm. continue alprazolam p.r.n.. She has been getting this regularly. Continue to monitor for over sedation. (3) Anxiety: Code(s): F41.9 - Anxiety disorder, unspecified Status: Acute Assessment and Plan: As above. (4) Malignant neoplasm of throat: Code(s): C14.0 - Malignant neoplasm of pharynx, unspecified Status: Acute Assessment and Plan: Patient with known squamous cell carcinoma of the throat. She is status post chemotherapy and radiation. She states he has had recurrence sometime in 2015 but no record of this. SHe states that she has had significnat weight loss recently. Encouraged her to follow up with oncology later this month. She complains of mouth pain but no sores noted. Diet adjusted to help with her oral intake. Continue supplements. (5) Hyponatremia: Code(s): E87.1 - Hypo-osmolality and hyponatremia Status: Acute Assessment and Plan: Na level back up to 130. Probably related to dehydration from poor oral intake. Stop IV fluids. (6) Multiple sclerosis: Code(s): G35 - Multiple sclerosis Status: Acute Assessment and Plan: Patient has hx of MS. Ravindra states that she is not sure about this. She walks with a cane due to her weakness from poor oral intake. Will start PT/OT. Social work to provide information about food pantries. (7) DVT prophylaxis: Code(s): Z29.9 - Encounter for prophylactic measures, unspecified Status: Acute Assessment and Plan: Lovenox Thank you so much for allowing me to be part of this patient's care. HPI Data of Consult Consult date: 02/11/20 Requesting Physician: Erich Shelton MD Primary Care Provider: Zack Banuelos MD Consult Narrative Narrative: Megan Frye is a 59 year old female with hx of COPD and head/neck cancer here for chest pain. patient states that she ran out of her anxiety medications few days prior to admission. She states she had a pharmacist refuse to refill this Xanax order despite an order from her physician. Over the 2 days prior to admission, she developed headache, worsening anxiety, nausea, vomiting and chest pain. She states it felt like a truck sitting on my chest . She has not been sleeping or eating. She also states that she has been losing weight this year. She states it has been at least 40 or 50 lb. She has had multiple admissions over the past year for anxiety. 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 She was noted to have recurrence about 6 months after completing her treatment. She has not had any treatment since her original course of treatment in 2013. She did have a scan 2 years ago showing the cancer had returned to her throat but no metastasis per patient. She is considering treatment and will be talking with oncologist later this month and [place]. Patient presented emergency room for evaluation. She was noted to have elevated troponins. She underwent emergency left heart catheterization which showed apical ballooning consistent with takotsubo cardiomyopathy. She did not require coronary artery intervention. She was initially admitted to
--- NOTE | 2020-02-10 13:36 | PC.NURSE ---
Took tray into patients room. Patient said that she did not want her tray because she has a headache and cannot eat with a headache. A short time later, the patient called asking for her lunch tray and stated well I must eat lunch thats why I have a headache. Lunch heated.
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
[2020-02-11] VITALS (11 sets, daily range): BP systolic 112–162; BP diastolic 46–62; PULSE 60–75; RESP 14–16; TEMP 36.6–37; O2SAT 93–100
[2020-02-11] MEDS: oxyCODONE/ACETAMINOPHEN 5-325 MG TABLET 1 TABLET PO ×4 (03:10→16:55)
[2020-02-11] MEDS: ALPRAZolam 0.5 MG TABLET 2 MG PO ×2 (03:53→11:18)
[2020-02-11 06:27] LABS: Hematocrit 28.3 % (37.0-47.0); Hemoglobin 9.5 g/dL (12.0-15.0); Mean Corpuscular HGB Conc 33.6 g/dl (32-36); Mean Corpuscular Hemoglobin 29.7 pg (26-34); Mean Corpuscular Volume 88.4 fl (80-100); Platelet Count Result 229 k/mm3 (150-375); Red Cell Distribution Width 13.5 % (11.5-14.5); White Blood Count 4.5 K/mm3 (4.5-10.0)
[2020-02-11 06:39] LABS: Anion Gap 4 mmol/L (8-16); Blood Urea Nitrogen 8 mg/dL (7-17); Calcium 8.7 mg/dL (8.4-10.2); Carbon Dioxide 28 mmol/L (22-30); Chloride 102 mmol/L (98-107); Estimated CRCL calculation 61 ml/min; Estimated Glomerular Filt Rate > 60; Glucose 98 mg/dL (65-105); Magnesium 1.7 mg/dL (1.6-2.3); Potassium 4.2 mmol/L (3.4-5.0); Sodium 134 mmol/L (137-145)
[2020-02-11] MEDS: carvediloL 6.25 MG TABLET PO (08:02)
[2020-02-11] MEDS: lisinopriL 5 MG TABLET PO (08:02)
[2020-02-11] MEDS: ENOXAPARIN 40 MG/0.4 ML SYRINGE SUB-Q (08:02)
[2020-02-11] MEDS: ACETAMINOPHEN 325 MG TABLET 650 MG PO (11:18)
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
--- NOTE | 2020-02-11 13:32 | PM.IMPN ---
Progress Note: A&P Assessment and Plan (1) Takotsubo cardiomyopathy: Code(s): I51.81 - Takotsubo syndrome Status: Acute Assessment and Plan: Emergent left heart catheterization showing large area of left ventricular akinesis involving the apical half of the LV - a pattern typical of takotsubo cardiomyopathy. Echo showing EF of 35-40% with akinetic apex, apical septum and apical anterior goldman. Patient started on medical management with Coreg and ACEI. (2) Chest pain: Code(s): R07.9 - Chest pain, unspecified Status: Acute Assessment and Plan: Chest pain related to anxiety and above. Patient still with some anxiety but overall appears calm. Continue alprazolam p.r.n.. She has been getting this regularly. Continue to monitor for over sedation. (3) Anxiety: Code(s): F41.9 - Anxiety disorder, unspecified Status: Acute Assessment and Plan: As above. Continue Xanax for the next few days until she can get into her PCP. (4) Malignant neoplasm of throat: Code(s): C14.0 - Malignant neoplasm of pharynx, unspecified Status: Acute Assessment and Plan: Patient with known hx of squamous cell carcinoma of the throat status post chemotherapy and radiation. She states she has had recurrence sometime in 2015 but no record of this. She states that she has had significant weight loss recently. Encouraged her to follow up with oncology later this month. (5) Hyponatremia: Code(s): E87.1 - Hypo-osmolality and hyponatremia Status: Acute Assessment and Plan: Na level back up to 134. Probably related to dehydration from poor oral intake. (6) Multiple sclerosis: Code(s): G35 - Multiple sclerosis Status: Acute Assessment and Plan: Patient has hx of MS. Patient states that she is not sure about this. She walks with a cane due to her weakness from poor oral intake and weight loss. Patient is walking with walker and has walker at home. (7) DVT prophylaxis: Code(s): Z29.9 - Encounter for prophylactic measures, unspecified Status: Acute Assessment and Plan: Lovenox Subjective Date/time seen: 02/11/20 13:32 Interval history: 59yo female here for CP and found to have Takasubo CMP. She feels better. Complains of left falnk pain. No CP. Eating okay. Exam Narrative: Exam Narrative: AF 162/58 72 14 97% ra Gen - NARD Chest - CTA bilaterally CV - RRR. S1-S2. Abd - soft, NT/ND, +BS Ext - no pedal edema. 2+ DP pulses bilaterally. Psych - anxious, tangential thought process Skin - warm and dry. left flank area is clear of rash Objective Data Vital Signs Vital Signs: Vital Signs - 24 hr 02/10/20 14:00 02/10/20 16:00 02/10/20 18:00 Temperature 99.1 F 99.1 F 98.3 F Pulse Rate 67 63 66 Respiratory Rate 14 16 16 Blood Pressure 117/38 L 107/45 L 131/46 L Pulse Oximetry 100 100 100 02/10/20 20:00 02/10/20 20:03 02/11/20 00:00 Temperature 97.6 F Pulse Rate 63 66 64 Respiratory Rate 16 Blood Pressure 130/52 L Pulse Oximetry 100 02/11/20 01:00 02/11/20 04:00 02/11/20 05:21 Temperature 98.6 F 97.8 F Pulse Rate 60 64 75 Respiratory Rate 16 16 Blood Pressure 138/58 L 112/46 L Pulse Oximetry 100 100 02/11/20 08:00 02/11/20 08:02 02/11/20 08:12 Temperature Pulse Rate 63 63 63 Respiratory Rate Blood Pressure 162/58 H Pulse Oximetry 93 02/11/20 12:00 02/11/20 12:16 Temperature 97.8 F Pulse Rate 73 72 Respiratory Rate 14 Blood Pressure Pulse Oximetry 97 Intake/Output Intake/Output: Intake & Output 02/08/20 02/09/20 02/10/20 02/11/20 23:59 23:59 23:59 23:59 Intake Total 1750 3670 2270 470 Output Total 700 1775 1500 100 Balance 1050 1895 770 370 Meds/Results Medications: Active Medications Generic Name Dose Route Start Last Admin Trade Name Freq PRN Reason Stop Dose Admin Acetaminophen 650 mg 0
--- NOTE | 2020-02-11 14:12 | PC.NURSE ---
Pt continuously calling out to nurses station asking for her Percocet and xanax stating she has not been given these medications. Reiterated to pt several times of the times that she received both of these medications. Verified these times with her in the MAR.
--- NOTE | 2020-02-11 17:15 | PC.NURSE ---
Pt stating Tylenol 4's are not in purse as she was discharging, belongings list was reviewed with the patient and there was no Tylenol 4's written on belongings list.
== END 2020-02-11 17:20 | disposition home or self-care (01) | DRG 192 ==
LOC: ANHED 04:10 → ANHICU 04:34 → ANH3MED 02-09 21:57
PROVIDERS: Internal Medicine; Admitting Provider Specialist; Emergency Provider Emergency Medicine; PCP Family Medicine; Visit Provider Specialist
PROC: 4A023N7 Measurement of Cardiac Sampling and Pressure, Left Heart, Percutaneous Approach (ICD-10-PCS; CPT 93452; principal; 2020-02-08 04:30)
DX: I51.81 Takotsubo syndrome (principal); E83.42 Hypomagnesemia; C14.0 Malignant neoplasm of pharynx, unspecified; G35 Multiple sclerosis; F41.9 Anxiety disorder, unspecified; E87.1 Hypo-osmolality and hyponatremia; F17.210 Nicotine dependence, cigarettes, uncomplicated; I67.9 Cerebrovascular disease, unspecified; J43.9 Emphysema, unspecified; E03.9 Hypothyroidism, unspecified; I10 Essential (primary) hypertension; R79.89 Other specified abnormal findings of blood chemistry; E78.5 Hyperlipidemia, unspecified; Z79.899 Other long term (current) drug therapy; Z92.21 Personal history of antineoplastic chemotherapy; Z92.3 Personal history of irradiation
CPT/HCPCS: 36415; 71045; 80048; 80053; 80061; 83735; 84443; 84484; 85025; 85027; 85610; 85730; 93005; 93306; 93458; 97110; 97161; 97165; 97530; 99291; A9270; C1887; C1894; C8929; J0360; J0461; J1644; J1650; J2060; J2250; J2270; J2405; J3010; J3475; J7030; J7040; Q9957

== ENCOUNTER 2020-02-16 14:15 | Observation (INO) | payer OTHER, SELFPAY ==
[2020-02-16] VITALS (20 sets, daily range): BP systolic 115–137; BP diastolic 42–70; PULSE 62–82; RESP 12–20; TEMP 35.9–37.3; O2SAT 97–100; BMI 18.5
--- NOTE | ~2020-02-16 | XR_ITS ---
EXAMINATION: XR chest 2V DATE: 02/16/2020 14:47 INDICATION: Midline chest pain. TECHNIQUE: Frontal and lateral views of the chest were obtained. COMPARISON: Chest single view 02/08/2020, chest CT 10/17/2017 FINDINGS: There is mild scarring at the lung apices. No pleural effusion or pneumothorax. The heart s ize is normal. There is a left subclavian port with tip in right atrium. IMPRESSION: 1. Mild scarring at the lung apices. Reviewed, dictated and finalized at location B.
--- NOTE | ~2020-02-16 | CT_ITS ---
EXAMINATION: CTA brain EXAM DATE: 02/17/2020 03:53 INDICATION: Headaches. TECHNIQUE: Noncontrast head CT. Spiral CT angiogram cerebral arteries performed with intravenous in jection of 100 mL Omnipaque 350. Axial, coronal and sagittal images reviewed. Additional reformatted images created on dedicated 3-D workstation. The dose-length product (DLP) for this examination was 963.18 mGy-cm. The exposure was tailored according to patient size, and iterative reconstruction ( ASIR) was used as additional dose reduction technique. Comparison is made to prior examination from . FINDINGS: There is a large lobulated aneurysm arising from the left carotid terminus measuring 10 x 8 x 11 mm, without evidence of rupture. This is certainly large enough to consider treating prophylac tically. No other aneurysms. Mild carotid siphon arterial sclerosis without stenosis. The vertebral a rteries are codominant. There is no acute intraparenchymal hemorrhage. No evidence of intraparenchymal brain mass lesion. No evidence of acute infarction. There is mild periventricular and subcortical hypodensity, nonspecif ic but probably related to small vessel ischemic disease. There is mild prominence of the sulci and ventricles related to cerebral atrophy. There is intracranial carotid arteriosclerosis. There is no mass effect or midline shift. There is no obstructive hydrocephalus suspected. There are no extr a-axial collections. There are no calvarial acute fractures. IMPRESSION: 1. Large left distal ICA aneurysm without acute intracranial hemorrhage. Consider nonemergent neuros urgical consult. 2. Mild age-related findings. Reviewed, dictated and finalized at location A. IMPRESSION: 1. Large left distal ICA aneurysm without acute intracranial hemorrhage. Consi vaibhav nonemergent neurosurgical consult. 2. Mild age-related findings.
--- NOTE | 2020-02-16 14:23 | ECG_ITS ---
Measurements Intervals [place] Rate: 72 P: 58 WV: 123 QRS: 62 QRSD: 81 T: 96 QT: 399 QTc: 438 Interpretive Statements SINUS RHYTHM T WAVE ABNORMALITY IN ANTERIOR LEADS- CONSIDER ISCHEMIA BASELINE ARTIFACT- I, III, AVR, AVL, V3 ABNORMAL ECG Electronically Signed On 02-16-2020 15:16:19 CDT by Giovany Jaramillo D.O.
--- NOTE | 2020-02-16 14:30 | ED.CHESTPAIN ---
HPI - Chest Pain General Chief Complaint: Chest Pain Stated Complaint: CP/JAMESON Time Seen by Provider: 02/16/20 14:30 Source: patient Mode of arrival: ambulatory Limitations: no limitations History of Present Illness HPI narrative: Chest pain since 3 AM. Locate throughout chest. Feels like pressure. No raiation. Associated with mild SOB. She reports that she had a heart attack 1 week ago and this feels the same. On review of the chart she was admitted as a STEMI and taken to the excavation laborer. She did not have any significant blockages. She was diagnosed with Takotsubo cardiomyopathy and managed medically. Additionally she reports a severe headache, which seems to be her main concern at the time of my evaluation, although she is not providing any details. MD complaint: chest pain Related Data Allergies Allergy/AdvReac Type Severity Reaction Status Date / Time Penicillins Allergy Intermediate Rash Verified 02/08/20 04:11 sumatriptan Allergy Intermediate Rash Verified 02/08/20 04:11 azithromycin Allergy Mild itching Verified 02/08/20 04:11 [From Zithromax Z-Charan] tramadol Allergy Unknown Verified 02/08/20 04:11 Review of Systems Review of Systems: All systems reviewed & are unremarkable except as noted in HPI and below Constitutional: Constitutional: Reports fatigue and Denies fever(s) ENT: Reports dizziness Cardiovascular: Cardiovascular: Reports chest pain Respiratory: Respiratory: Reports dyspnea Gastrointestinal: Gastrointestinal: Reports nausea Neurologic: Reports headache(s) and Denies numbness Psychiatric: Psychiatric: Reports anxiety PMFSH Past Medical History Medical History Aneurysm of left carotid artery Anxiety Arthritis Bulging disc Chronic constipation COPD (chronic obstructive pulmonary disease) Depression Emphysema lung Fibromyalgia HTN (hypertension) Hyponatremia Hypothyroid Mitral valve prolapse Multiple sclerosis Post-menopausal SVT (supraventricular tachycardia) Throat cancer 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 Surgical History Surgical History Hx of hysterectomy Hx of tonsillectomy Intestinal bypass and anastomosis status Family History Family History Father Diabetes mellitus Heart disease Cerebrovascular accident Mother Hyperlipemia Heart disease Sibling Hyperlipemia Heart disease Social History Social History Social History: Patient lives alone. Family live in the area. She smokes a pack a day since age 18. She is down to 4 cigarettes a day. She denies alcohol or drug use. She is a full code. She nominated her daughter Vlad to be the individual would make medical decisions for her if she is unable. Smoking packs per day: 0.5 Smoking cigarettes per day: 10.0 Years smoked: 25 Smoking pack-years: 12.50 Smoking status: Current every day smoker Tobacco type: cigarettes Alcohol intake: never Substance use: never Substance use type: does not use Additional occupation/education comments: On disability for her back, cancer and aneurysm Gender identity (if verbalized by the patient): Female Spiritual care concerns: No Exam Const: General: alert Orientation/consciousness: patient oriented x3 Other: mild distress HENMT: Head: normal to inspection Eyes: Pupils: Equal, round and reactive pupils present EOM: EOMs intact bilaterally Neck: Neck: normal visual inspection and no lymphadenopathy Chest: Chest palpation & inspection: no tenderness Resp: Effort & Inspection: normal respiratory effort Auscultation: clear to auscultation bilaterally, no rales, no rhonchi and no wheezes Cardio: Jugular venous distension: no JVD Rate: regular rate Rhythm:
[2020-02-16 14:35] LABS: Basophils Absolute Auto 0.1 K/mm3 (0.0-0.1); Basophils Percent Auto 1.2 % (0.2-1.2); Eosinophils Absolute Auto 0.2 K/mm3 (0-0.3); Eosinophils Percent Auto 2.6 % (0-4.4); Hematocrit 29.1 % (37.0-47.0); Hemoglobin 9.7 g/dL (12.0-15.0); Immature Granulocyte Absolute 0.01 K/mm3 (0.00-0.031); Immature Granulocyte Percent A 0.2 % (0-0.5); Lymphocytes Absolute Auto 1.51 K/mm3 (0.9-3.2); Lymphocytes Percent Auto 26.4 % (18.3-44.2); Mean Corpuscular HGB Conc 33.3 g/dl (32-36); Mean Corpuscular Hemoglobin 29.7 pg (26-34); Mean Platelet Volume 9.2 fl (7.4-10.4); Monocytes Absolute Auto 0.3 K/mm3 (0.1-0.6); Monocytes Percent Auto 5.8 % (2.6-8.5); Neutrophils Absolute Auto 3.7 K/mm3 (1.3-6.7); Neutrophils Percent Auto 63.8 % (45.5-73.1); Platelet Count Result 248 k/mm3 (150-375); Red Blood Count 3.27 M/mm3 (4.2-5.4); Red Cell Distribution Width 13.8 % (11.5-14.5); White Blood Count 5.7 K/mm3 (4.5-10.0)
[2020-02-16 14:47] LABS: Anion Gap 5 mmol/L (8-16); Blood Urea Nitrogen 11 mg/dL (7-17); Calcium 8.9 mg/dL (8.4-10.2); Carbon Dioxide 28 mmol/L (22-30); Chloride 103 mmol/L (98-107); Estimated CRCL calculation 60 ml/min; Estimated Glomerular Filt Rate > 60; Glucose 98 mg/dL (65-105); Potassium 3.9 mmol/L (3.4-5.0); Sodium 136 mmol/L (137-145)
[2020-02-16 14:51] LABS: Prothrombin Time 13.2 Seconds (11.1-14.7)
[2020-02-16 14:52] LABS: Partial Thromboplastin Time 32.6 SECONDS (22.3-36.8)
[2020-02-16] MEDS: PANTOPRAZOLE SODIUM IV 40 MG VIAL IV PUSH (14:56)
[2020-02-16] MEDS: METOCLOPRAMIDE HCL INJ 10 MG/2 ML VIAL IV PUSH (14:56)
[2020-02-16] MEDS: SODIUM CHLORIDE 0.9% IV 500 ML 999 ML IV CONT (14:56)
[2020-02-16 14:58] LABS: Troponin I < 0.012 ng/mL (0.000-0.034)
--- NOTE | 2020-02-16 16:00 | PC.NURSE ---
Gave Pt. GI cocktail. Pt. immediately spit it back up. No vomiting.
--- NOTE | 2020-02-16 17:47 | ADMGEN ---
This patient, Megan Frye, was admitted to IMU Room 212-01 @ 1715. Patient oriented to hospital policies and general routines including ID bracelet, bed and alarms, visiting hours, pain management, procedures, bathroom and other care routines, personal items, smoking policy, room service/diet, and visiting hours. Valuables list has been completed. Information on how to activate the Rapid Response Team has been discussed. Patient/ encouraged to report perceived risks to care and to ask questions if they do not understand what they are told or what they should do.
[2020-02-16 18:22] LABS: Troponin I < 0.012 ng/mL (0.000-0.034)
[2020-02-16 20:33] LABS: Troponin I < 0.012 ng/mL (0.000-0.034)
[2020-02-16 20:33] LABS: Glucose Point of Care 180 (65-105)
[2020-02-16] MEDS: LACTATED RINGERS 1,000 ML 50 ML IV CONT (21:16)
[2020-02-16] MEDS: ALPRAZolam 0.5 MG TABLET 2 MG PO (23:38)
[2020-02-17] VITALS (8 sets, daily range): BP systolic 122–150; BP diastolic 45–62; PULSE 59–75; RESP 18–20; TEMP 36.4–36.6; O2SAT 98–100; BMI 19.6
[2020-02-17] MEDS: PHENOL/SOD PHENO SPRAY CHERRY (*BKC) 4 SPRAY MUCOUS MEM ×2 (01:30→09:22)
[2020-02-17] MEDS: ALPRAZolam 0.5 MG TABLET 2 MG PO ×2 (04:58→09:25)
--- NOTE | 2020-02-17 08:56 | PM.CNCAR ---
Assessment and Plan Assessment and plan (1) Takotsubo cardiomyopathy: Code(s): I51.81 - Takotsubo syndrome Status: Acute Assessment and Plan: 59-year-old female with recently diagnosed takotsubo cardiomyopathy with LVEF 35-40%; anxiety/depression. patient admitted to the hospital with complaints of chest discomfort associated with multiple somatic complaints. She is currently not in any significant volume overload. Her EKG shows sinus rhythm with nonspecific T-wave abnormalities, serial troponins are negative. Chest x-ray does not show pulmonary vascular congestion. Continue carvedilol, lisinopril. May use furosemide on p.r.n. basis for any significant volume overload. outpatient Cardiology follow-up 3-4 weeks or sooner if needed. (2) Cerebrovascular disease: Code(s): I67.9 - Cerebrovascular disease, unspecified Status: Acute Assessment and Plan: Recommend neurosurgery evaluation for patient's intracranial aneurysm. (3) Anxiety: Code(s): F41.9 - Anxiety disorder, unspecified Status: Acute Assessment and Plan: Recommend psychiatric evaluation for patient's ongoing anxiety. Management as per primary team History of Present Illness History of Present Illness Consult date/time: 02/17/20 08:56 date of consult: 02/17/2020 reason for consult: Chest pain Requesting physician:MD Olivia Chief complaint: chest pain HPI: 59-year-old female with recently diagnosed takotsubo cardiomyopathy with LVEF 35-40%; anxiety/depression. Patient was recently admitted to hospital on 02/08/2020 with complaints of chest discomfort. She had coronary angiogram which showed normal coronary arteries and LV systolic dysfunction with segmental wall motion abnormality consistent with takotsubo cardiomyopathy. Echocardiogram from 02/09/2020 showed EF 35-40% with segmental wall motion abnormality. She was initiated on beta-acosta and KITTY-inhibitor, and was discharged home on 02/11/2020. Patient return to the hospital with complaints of chest pressure associated with multiple somatic symptoms including shaking, vomiting, generalized fatigue. Patient states that she has severe anxiety, and wants anti anxiety and pain medications. She reports dyspnea on mild exertion. Denies any PND, orthopnea or lower extremity swelling. Denies any palpitation, dizziness or syncope. She reports compliance with carvedilol and lisinopril. EKG on my personal evaluation showed sinus rhythm with nonspecific T-wave abnormality. serial troponins are negative. chest x-ray showed Mild scarring at the lung apices. CT scan of the head showed Large left distal ICA aneurysm without acute intracranial hemorrhage. Reason For Visit: Chest pain Review of Systems Constitutional: Constitutional: Denies chills, Denies fatigue, Denies fever(s) and Reports headache(s) Comments: anxiety Eyes: Eyes: Reports as per HPI, Denies change in vision, Denies loss of vision and Denies eye pain ENT: Reports as per HPI, Reports Normal hearing present, Denies headache(s), Denies lip swelling, Denies epistaxis and Denies sore throat Cardiovascular: Cardiovascular: Reports as per HPI, Reports chest pain, Denies syncope, Denies irregular heart rhythm, Denies lightheadedness and Denies dyspnea Respiratory: Respiratory: Reports as per HPI, Denies cough, Reports dyspnea and Denies wheezing Gastrointestinal: Gastrointestinal: Reports as per HPI, Denies abdominal pain, Denies melena, Denies nausea and Denies vomiting Genitourinary: Genitourinary: Reports as per HPI Musculoskeletal: Musculoskeletal: Reports as per HPI, Denies myalgias, Denies muscle cramps and Denies muscle weakness Integumentary/Breasts: Skin/Breast: Reports as per HPI, Denies pruritus and Denies rash Neurologic: Reports as per HPI, Reports Normal hearing present, Denies behavioral changes, Denies syncope, Denies headache(s) and Denies loss of vision Psychiatric: Ps
[2020-02-17] MEDS: ENOXAPARIN 40 MG/0.4 ML SYRINGE SUB-Q (09:19)
[2020-02-17] MEDS: carvediloL 6.25 MG TABLET PO (09:19)
[2020-02-17] MEDS: lisinopriL 5 MG TABLET PO (09:19)
--- NOTE | 2020-02-17 13:06 | PC.NURSE ---
Discharged home- via wheelchair accompanied by CCT to vehicle driven by [facility]- prescriptions for Tylenol with Codiene and Xanax were given to pt; pt instructed to keep scheduled appointments with primary and cardiology and importance of follow -up appointments- pt acknowledged- denies chest pain at this time
--- NOTE | 2020-02-17 17:38 | PM.SD ---
Same Day Admit/Disch: HPI History of Present Illness Chief complaint: Chest pain Narrative: Megan Frye is a 59 year old female admitted with chest pain pt has history of Takotsubo cardiomyopathy, anxiety and malignant neoplasm of throat and hyponatremia. Pts troponin is nL. Pt seen by cardiology ok for discharge. Pt had chest pain similar to last time, intermittent central rushing chest pain. Pt has had a recent left heart catheterization showing large area of left ventricular akinesis involving the apical half of the LV - a pattern typical of takotsubo cardiomyopathy. Echo showing EF of 35-40% with akinetic apex, apical septum and apical anterior goldman. Patient started on medical management last visit. 02/09 and thought she had similar problem again. So came into the hospital to be seen. Pt states she is trying to get in to Dr Miller PCP office. 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 Surgical History Surgical History Hx of hysterectomy Hx of tonsillectomy Intestinal bypass and anastomosis status Family History Family History Father Diabetes mellitus Heart disease Cerebrovascular accident Mother Hyperlipemia Heart disease Sibling Hyperlipemia Heart disease Social History Social History Social History: Patient lives alone. Family live in the area. She smokes a pack a day since age 18. She is down to 4 cigarettes a day. She denies alcohol or drug use. She is a full code. She nominated her daughter Vlad to be the individual would make medical decisions for her if she is unable. Smoking packs per day: 0.5 Smoking cigarettes per day: 10.0 Years smoked: 25 Smoking pack-years: 12.50 Smoking status: Current every day smoker Tobacco type: cigarettes Alcohol intake: never Substance use: never Substance use type: does not use Additional occupation/education comments: On disability for her back, cancer and aneurysm Gender identity (if verbalized by the patient): Female Spiritual care concerns: No Same Day Admit/Disch: Med Pre-admit Medications Home Medications Medication Instructions Recorded Confirmed Type acetaminophen-codeine 1 tablet PO Q6H PRN #22 tablet 02/11/20 02/16/20 Rx alprazolam [Xanax] 2 mg PO QID PRN #25 tablet 02/11/20 02/16/20 Rx carvedilol [Coreg] 6.25 mg PO Q12HR #60 tablet 02/11/20 02/16/20 Rx lisinopril 5 mg PO QAM #30 tablet 02/11/20 02/16/20 Rx acetaminophen-codeine 1 tablet PO Q6H PRN #30 tablet 02/17/20 Rx alprazolam [Xanax] 2 mg PO HS PRN 30 Days #30 tablet 02/17/20 Rx furosemide [Lasix] 20 mg PO DAILY PRN #30 tablet 02/17/20 Rx Exam Const: General: tired appearing and other (thin appearing, chronically ill appearing ) HENMT: Head: normocephalic Eyes: General: appearance normal, both eyes and all related structures Pupils: Equal, round and reactive pupils present Neck: Neck: supple Chest: Chest palpation & inspection: normal inspection of the chest Resp: Effort & Inspection: normal respiratory effort Auscultation: clear to auscultation bilaterally Cardio: Jugular venous distension: no JVD Rhythm: regular rhythm Heart sounds: S1 normal heart sound present and S2 normal heart sound present GI: Inspection: normal to inspection GI Palp: No abdominal tenderness, Yes Soft to palpation and No Tenderness
== END 2020-02-17 13:10 | disposition home or self-care (01) ==
LOC: ANHED 16:12 → ANHIMU 18:17
PROVIDERS: Emergency Medicine; Admitting Provider Family Medicine; Emergency Provider Emergency Medicine; PCP Family Medicine; Visit Provider Family Medicine
DX: R07.89 Other chest pain (principal); F41.9 Anxiety disorder, unspecified; I51.81 Takotsubo syndrome; I10 Essential (primary) hypertension; I67.1 Cerebral aneurysm, nonruptured; I34.1 Nonrheumatic mitral (valve) prolapse; J43.9 Emphysema, unspecified; E87.1 Hypo-osmolality and hyponatremia; F17.210 Nicotine dependence, cigarettes, uncomplicated; G35 Multiple sclerosis; M79.7 Fibromyalgia; E03.9 Hypothyroidism, unspecified; Z79.899 Other long term (current) drug therapy; Z85.818 Personal history of malignant neoplasm of other sites of lip, oral cavity, and pharynx
CPT/HCPCS: 36415; 70496; 71046; 80048; 84484; 85025; 85610; 85730; 93005; 96360; 96361; 96372; 96374; 96375; 99285; A9270; C9113; G0378; G0379; J0131; J1650; J2765; J7040; J7120; Q9967

== ENCOUNTER 2020-02-22 17:19 | Emergency (ER) | payer OTHER, SELFPAY ==
[2020-02-22 17:39] VITALS: BP 140/51; PULSE 77; RESP 18; TEMP 36.3; O2SAT 98
--- NOTE | 2020-02-22 18:16 | ED.GENADULT ---
HPI - General Adult General Chief complaint: Unspecified Stated complaint: THROAT CANCER --R EAR BLEEDING Time Seen by Provider: 02/22/20 17:36 Source: patient Mode of arrival: ambulatory Limitations: no limitations History of Present Illness HPI narrative: 59-year-old with multiple medical problems here with complaints of throat pain. Patient states that she has throat cancer and l right carotid artery blockage. She states that her pain is uncontrollable and the home pain medication is not helping. She states that she is scheduled to see Dr. Bermeo tomorrow. She denies any fever or chills denies any shortness of breath. Pt states Tylenol# 4 is not helping with pain . Onset (ago): unknown Location: mouth Radiation: neck Severity: moderate Quality: aching Associated symptoms: denies other symptoms Related Data Allergies Allergy/AdvReac Type Severity Reaction Status Date / Time Penicillins Allergy Intermediate Rash Verified 02/22/20 17:52 sumatriptan Allergy Intermediate Rash Verified 02/22/20 17:52 azithromycin Allergy Mild itching Verified 02/22/20 17:52 [From Zithromax Z-Charan] tramadol Allergy Unknown Verified 02/22/20 17:52 Review of Systems Review of Systems: All systems reviewed & are unremarkable except as noted in HPI and below Constitutional: Constitutional: Reports no additional constitutional complaints Eyes: Eyes: Reports as per HPI ENT: Reports system reviewed and no additional complaints, except as documented Cardiovascular: Cardiovascular: Reports no additional cardiovascular complaints Respiratory: Respiratory: Reports no additional respiratory complaints Gastrointestinal: Gastrointestinal: Reports no additional gastrointestinal complaints PMFSH Past Medical History Medical History Aneurysm of left carotid artery Anxiety Arthritis Bulging disc Chronic constipation COPD (chronic obstructive pulmonary disease) Depression Emphysema lung Fibromyalgia HTN (hypertension) Hyponatremia Hypothyroid Mitral valve prolapse Multiple sclerosis Post-menopausal SVT (supraventricular tachycardia) Throat cancer 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 Surgical History Surgical History Hx of hysterectomy Hx of tonsillectomy Intestinal bypass and anastomosis status Family History Family History Father Diabetes mellitus Heart disease Cerebrovascular accident Mother Hyperlipemia Heart disease Sibling Hyperlipemia Heart disease Social History Social History Social History: Patient lives alone. Family live in the area. She smokes a pack a day since age 18. She is down to 4 cigarettes a day. She denies alcohol or drug use. She is a full code. She nominated her daughter Vlad to be the individual would make medical decisions for her if she is unable. Smoking packs per day: 0.5 Smoking cigarettes per day: 10.0 Years smoked: 25 Smoking pack-years: 12.50 Smoking status: Current every day smoker Tobacco type: cigarettes Alcohol intake: never Substance use: never Substance use type: does not use Additional occupation/education comments: On disability for her back, cancer and aneurysm Gender identity (if verbalized by the patient): Female Spiritual care concerns: No Exam Narrative: Exam Narrative: GENERAL: Frail and thin and in no acute distress. HEAD: Normocephalic, atraumatic. EYES: PERRLA and EOMI. ENT: Nares clear, no rhinorrhea or epistaxis. Mucous membranes moist. NECK: Supple. CHEST: Clear to auscultation. No respiratory distress. HEART: Regular rate and rhythm. No murmur heard. Normal peripheral pulses. EXTREMITIES: Normal range of motion. No edema. SKIN: Warm, dry, no rash. NEURO: No
== END 2020-02-22 18:52 | disposition home or self-care (01) ==
PROVIDERS: Emergency Provider Family Medicine; PCP Family Medicine
DX: R07.0 Pain in throat (principal); C14.0 Malignant neoplasm of pharynx, unspecified; I65.21 Occlusion and stenosis of right carotid artery; M19.90 Unspecified osteoarthritis, unspecified site; J43.9 Emphysema, unspecified; M79.7 Fibromyalgia; I10 Essential (primary) hypertension; E03.9 Hypothyroidism, unspecified; G35 Multiple sclerosis; F17.210 Nicotine dependence, cigarettes, uncomplicated
CPT/HCPCS: 99283

== ENCOUNTER 2020-03-05 16:03 | Emergency (ER) | payer OTHER, SELFPAY ==
--- NOTE | ~2020-03-05 | CT_ITS ---
EXAMINATION: CT soft tissue neck w con EXAM DATE: 03/05/2020 20:43 INDICATION: Throat mass. TECHNIQUE: Spiral CT of the neck was performed following intravenous injection of 75 mL Omnipaque 350 . Axial, coronal and sagittal images were reviewed. The dose-length product (DLP) for this examinat ion was 284.65 mGy-cm. The exposure was tailored according to patient size (auto mA exposure control ), and iterative reconstruction (ASIR) was used as additional dose reduction technique. There is a l eft-sided portacatheter. FINDINGS: There is mass centered in the right tonsil, but extending anteriorly along the tongue base, region measuring 2.7 x 1.8 cm. This extends as far cephalad as the nasopharynx. There is right subma ndibular lymph node measuring 1.1 x 0.8 cm, probably metastatic. There is a necrotic appearing left i nternal jugular chain lymph node at the mandibular angle measuring 1.1 x 1.0 cm. There is severe bilateral carotid stenosis, with the lumens of the carotid arteries only about 1 mm i n diameter versus reference point about 4 mm. These are surgical grade stenoses. There is an aneurysm at the left ICA/M1 junction measuring 8 mm. The thyroid gland is unremarkable. The submandibular and parotid glands are symmetric. The superi or mediastinum is unremarkable. The airway is unremarkable. Parapharyngeal and pre-glottic fat pl anes are preserved. The opacified vasculature is patent. The orbits are unremarkable. Visualize d sinuses and mastoid air cells are well aerated. There is cervical spondylosis. IMPRESSION: 1. Severe bilateral carotid bulb stenosis, consider vascular consult. 2. Left distal ICA 8mm aneurysm. Neurosurgical consult. 3. Mass centered in the right tonsil, metastatic submandibular and left internal jugular chain lymph adenopathy. Reviewed, dictated and finalized at location A. IMPRESSION: 1. Severe bilateral carotid bulb stenosis, consider vascular consult. 2. Left distal ICA 8mm aneurysm. Neurosurgical consult. 3. Mass centered in the right tonsil, metastatic submandibular and left director internal control al jugular chain lymphadenopathy.
--- NOTE | ~2020-03-05 | CT_ITS ---
EXAMINATION: CT brain wo con EXAM DATE: 03/05/2020 20:42 INDICATION: Headache. Throat mass. TECHNIQUE: Spiral CT of the head was performed without contrast. Axial, coronal and sagittal images were reviewed. The dose-length product (DLP) for this examination was 605.33 mGy-cm. The exposure w as tailored according to patient size, and iterative reconstruction (ASIR) was used as additional dos e reduction technique. Comparison is made to prior examination from 02/17/2020. FINDINGS: There is no acute intraparenchymal hemorrhage. No evidence of intraparenchymal brain mass lesion. No evidence of acute infarction. 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 There is no mass effect or midline shift. The ventricles are normal in size. There are no extra-axial collections. There are no acute calvarial fractures. The orbits are unremarkable. Soft tissue is unremarkable. T he visualized sinuses and mastoid air cells are well aerated. IMPRESSION: 1. No acute intracranial findings. 2. 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 Reviewed, dictated and finalized at location A.
--- NOTE | ~2020-03-05 | XR_ITS ---
EXAMINATION: XR chest 1V portable EXAM DATE: 03/05/2020 19:21 INDICATION: Shortness of breath, hypertension. TECHNIQUE: Portable AP frontal chest x-ray was obtained. Comparison is made to prior examination from 02/16/2020. FINDINGS: There is a left-sided CT injectable port. There is no focal air space disease. There are n o pleural effusions. The cardiothymic silhouette is normal. There is no pneumothorax. There are no osseous or soft tissue abnormalities in this skeletally immature patient. Lungs have normal volume. IMPRESSION: No acute cardiopulmonary findings. Reviewed, dictated and finalized at location A.
[2020-03-05 16:10] VITALS: BP 158/63; PULSE 92; RESP 17; TEMP 37.5; O2SAT 99
--- NOTE | 2020-03-05 18:40 | ECG_ITS ---
Measurements Intervals Ryan Rate: 81 P: 73 WI: 146 QRS: 60 QRSD: 88 T: 81 QT: 375 QTc: 437 Interpretive Statements SINUS RHYTHM T WAVE ABNORMALITY IN ANTERIOR LEADS- CONSIDER ISCHEMIA BASELINE ARTIFACT- I, III, AVR, AVL, AVF, V4 ABNORMAL ECG Electronically Signed On 03-06-2020 7:44:57 CDT by Giovany Jaramillo D.O.
--- NOTE | 2020-03-05 19:12 | ED.HA ---
HPI - Headache General Chief Complaint: Headache Stated Complaint: I think I had a stroke Time Seen by Provider: 03/05/20 19:09 History of Present Illness HPI Narrative: History limited due to the fact that she is an extremely poor historian. It is difficult to ascertain exactly what brought her in today. She reports that she thinks she had a stroke a few days ago because she could not control her hand when she went to olive picker a cup, but also says that she was able to hold the cup without dropping it. She also says that she is here for pain due to throat cancer, which she has had since 2013. She also has frequent headaches. Related Data Allergies Allergy/AdvReac Type Severity Reaction Status Date / Time Penicillins Allergy Intermediate Rash Verified 03/05/20 16:16 sumatriptan Allergy Intermediate Rash Verified 03/05/20 16:16 azithromycin Allergy Mild itching Verified 03/05/20 16:16 [From Zithromax Z-Charan] tramadol Allergy Unknown Verified 03/05/20 16:16 Review of Systems Review of Systems: All systems reviewed & are unremarkable except as noted in HPI and below Constitutional: Constitutional: Reports fatigue and Reports weakness ENT: Reports dizziness and Reports sore throat Cardiovascular: Cardiovascular: Reports chest pain Respiratory: Respiratory: Reports dyspnea Gastrointestinal: Gastrointestinal: Reports nausea Genitourinary: Genitourinary: Denies dysuria Musculoskeletal: Musculoskeletal: Reports back pain Neurologic: Reports dizziness and Reports weakness PMFSH Past Medical History Medical History Aneurysm of left carotid artery Anxiety Arthritis Bulging disc Chronic constipation COPD (chronic obstructive pulmonary disease) Depression Emphysema lung Fibromyalgia HTN (hypertension) Hyponatremia Hypothyroid Mitral valve prolapse Multiple sclerosis Post-menopausal SVT (supraventricular tachycardia) Throat cancer 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 Surgical History Surgical History Hx of hysterectomy Hx of tonsillectomy Intestinal bypass and anastomosis status Family History Family History Father Diabetes mellitus Heart disease Cerebrovascular accident Mother Hyperlipemia Heart disease Sibling Hyperlipemia Heart disease Social History Social History Social History: Patient lives alone. Family live in the area. She smokes a pack a day since age 18. She is down to 4 cigarettes a day. She denies alcohol or drug use. She is a full code. She nominated her daughter Vlad to be the individual would make medical decisions for her if she is unable. Smoking packs per day: 0.5 Smoking cigarettes per day: 10.0 Years smoked: 25 Smoking pack-years: 12.50 Smoking status: Current every day smoker Tobacco type: cigarettes Alcohol intake: never Substance use: never Substance use type: does not use Additional occupation/education comments: On disability for her back, cancer and aneurysm Gender identity (if verbalized by the patient): Female Spiritual care concerns: No Exam Const: General: no acute distress, alert and ill appearing chronically Nutritional Appearance: thin Orientation/consciousness: patient oriented x3 HENMT: Other: Erythema swelling and puntate ulcerations of the oropharynx Eyes: Pupils: Equal, round and reactive pupils present Resp: Effort & Inspection: normal respiratory effort Auscultation: clear to auscultation bilaterally Cardio: Rate: regular rate Rhythm: regular rhythm Skin: General skin exam: normal color Neuro: General: patient oriented x3, moves all extremities, no focal motor deficits and CN's II-XI intact bilaterally Extrem: General: n
[2020-03-05] MEDS: SODIUM CHLORIDE 0.9% IV 500 ML 999 ML IV CONT (19:51)
[2020-03-05] MEDS: diphenhydrAMINE HCl INJ 50 MG/ML VIAL 25 MG IV PUSH (19:52)
[2020-03-05] MEDS: METOCLOPRAMIDE HCL INJ 10 MG/2 ML VIAL IV PUSH (19:53)
[2020-03-05 20:03] LABS: Basophils Percent Auto 0.4 % (0.2-1.2); Eosinophils Percent Auto 0.6 % (0-4.4); Hematocrit 40.7 % (37.0-47.0); Hemoglobin 13.4 g/dL (12.0-15.0); Immature Granulocyte Absolute 0.01 K/mm3 (0.00-0.031); Immature Granulocyte Percent A 0.1 % (0-0.5); Lymphocytes Absolute Auto 1.53 K/mm3 (0.9-3.2); Lymphocytes Percent Auto 21.2 % (18.3-44.2); Mean Corpuscular HGB Conc 32.9 g/dl (32-36); Mean Corpuscular Hemoglobin 29.4 pg (26-34); Mean Corpuscular Volume 89.3 fl (80-100); Mean Platelet Volume 9.1 fl (7.4-10.4); Monocytes Absolute Auto 0.3 K/mm3 (0.1-0.6); Monocytes Percent Auto 4.7 % (2.6-8.5); Neutrophils Absolute Auto 5.3 K/mm3 (1.3-6.7); Platelet Count Result 332 k/mm3 (150-375); Red Blood Count 4.56 M/mm3 (4.2-5.4); Red Cell Distribution Width 14.3 % (11.5-14.5); White Blood Count 7.2 K/mm3 (4.5-10.0)
[2020-03-05 20:15] LABS: Anion Gap 11 mmol/L (8-16); Blood Urea Nitrogen 12 mg/dL (7-17); Calcium 10.7 mg/dL (8.4-10.2); Carbon Dioxide 29 mmol/L (22-30); Chloride 99 mmol/L (98-107); Estimated CRCL calculation 47 ml/min; Estimated Glomerular Filt Rate > 60; Glucose 106 mg/dL (65-105); Potassium 4.2 mmol/L (3.4-5.0); Sodium 139 mmol/L (137-145)
[2020-03-05 20:28] LABS: Troponin I < 0.012 ng/mL (0.000-0.034)
[2020-03-05 20:30] LABS: Prothrombin Time 12.4 Seconds (11.1-14.7)
[2020-03-05 20:31] LABS: Partial Thromboplastin Time 32.5 SECONDS (22.3-36.8)
[2020-03-05 20:54] VITALS: BP 159/60; PULSE 84; RESP 16; O2SAT 99
--- NOTE | 2020-03-05 21:15 | PC.NURSE ---
made aware --pt forgot to give urine while in bathroom
[2020-03-05 21:50] VITALS: BP 145/62; PULSE 84; RESP 16; O2SAT 97
[2020-03-05 22:50] VITALS: BP 147/65; PULSE 76; RESP 16; O2SAT 96
== END 2020-03-05 22:50 | disposition home or self-care (01) ==
PROVIDERS: Emergency Medicine Emergency Medical Services; Emergency Provider Emergency Medicine
DX: C14.0 Malignant neoplasm of pharynx, unspecified (principal); R51 Headache; F17.210 Nicotine dependence, cigarettes, uncomplicated; M19.90 Unspecified osteoarthritis, unspecified site; J44.9 Chronic obstructive pulmonary disease, unspecified; I10 Essential (primary) hypertension; E03.9 Hypothyroidism, unspecified; I34.1 Nonrheumatic mitral (valve) prolapse; G35 Multiple sclerosis; F41.9 Anxiety disorder, unspecified
CPT/HCPCS: 36415; 70450; 70491; 71045; 80048; 82948; 84484; 85025; 85610; 85730; 93005; 96365; 96375; 99284; J0131; J1200; J2765; J7040; Q9967

== ENCOUNTER 2020-04-04 22:12 | Emergency (ER) | payer OTHER, SELFPAY ==
[2020-04-04 22:20] VITALS: BP 153/56; PULSE 91; RESP 15; TEMP 37.2; O2SAT 97
--- NOTE | 2020-04-04 22:21 | ED.GENADULT ---
HPI - General Adult General Chief complaint: Unspecified Stated complaint: medication change Time Seen by Provider: 04/04/20 22:21 History of Present Illness HPI narrative: 60 yo female with a h/o throat cancer, taketsubo's cardiomyopathy, htn, anxiety presents to the ED c/o about her medications. She says that she was recently admitted to [facility] and they put her on a bunch of medications that were working for her. She then followed up with an oncologist and she is upset that he changed her medications. Specifically, she does not like that she was taken off of xanax and placed on a small dose of ativan. She says that she wants to jump out of her skin. She claims that she she was also fired by her oncologist today because they cannot handle everything that is wrong with her. I have seen her in the past and she has made similar complaints about other doctors. When I have contacted them they say that it is not true. I suspect that she is noncompliant and goes doctor shopping until she finds someone that david prescribe what she is asking for. Related Data Allergies Allergy/AdvReac Type Severity Reaction Status Date / Time Penicillins Allergy Intermediate Rash Verified 03/05/20 16:16 sumatriptan Allergy Intermediate Rash Verified 03/05/20 16:16 azithromycin Allergy Mild itching Verified 03/05/20 16:16 [From Zithromax Z-Charan] tramadol Allergy Unknown Verified 03/05/20 16:16 Review of Systems Review of Systems: All systems reviewed & are unremarkable except as noted in HPI and below Constitutional: Constitutional: Reports anorexia ENT: Reports sore throat Cardiovascular: Cardiovascular: Denies chest pain and Reports rapid heart rate Respiratory: Respiratory: Reports dyspnea Gastrointestinal: Gastrointestinal: Reports nausea Neurologic: Reports weakness Psychiatric: Psychiatric: Reports anxiety [facility] Past Medical History Medical History Aneurysm of left carotid artery Anxiety Arthritis Bilateral carotid artery stenosis Bulging disc Carotid aneurysm, left Chronic constipation COPD (chronic obstructive pulmonary disease) Depression Emphysema lung Fibromyalgia HTN (hypertension) Hyponatremia Hypothyroid Mitral valve prolapse Multiple sclerosis Post-menopausal SVT (supraventricular tachycardia) Throat cancer 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 Surgical History Surgical History Hx of hysterectomy Hx of tonsillectomy Intestinal bypass and anastomosis status Family History Family History Father Diabetes mellitus Heart disease Cerebrovascular accident Mother Hyperlipemia Heart disease Sibling Hyperlipemia Heart disease Social History Social History Social History: Patient lives alone. Family live in the area. She smokes a pack a day since age 18. She is down to 4 cigarettes a day. She denies alcohol or drug use. She is a full code. She nominated her daughter Vlad to be the individual would make medical decisions for her if she is unable. Smoking packs per day: 0.5 Smoking cigarettes per day: 10.0 Years smoked: 25 Smoking pack-years: 12.50 Smoking status: Current every day smoker Tobacco type: cigarettes Alcohol intake: never Substance use: never Substance use type: does not use Additional occupation/education comments: On disability for her back, cancer and aneurysm Gender identity (if verbalized by the patient): Female Spiritual care concerns: No Exam Const: General: no acute distress, alert, anxious and ill appearing chronically Nutritional Appearance: thin Orientation/consciousness: patient oriented x3 HENMT: Head: normal to inspection Throat: other (pharyngeal mass) Neck:
--- NOTE | 2020-04-05 00:37 | PC.NURSE ---
pt was very upset at MD, stated we did nothing for her and did not address her apolinar pain or anxiety, pt states her PMD changed her anxiety meds and they arent enough now, pt then c/o ED MD not giving her what she wanted. stated she will [facility] now.
[2020-04-05 00:39] VITALS: BP 151/86; PULSE 94; RESP 18; TEMP 36.7; O2SAT 98
== END 2020-04-05 00:40 | disposition home or self-care (01) ==
PROVIDERS: Emergency Provider Emergency Medicine
DX: F41.9 Anxiety disorder, unspecified (principal); C14.0 Malignant neoplasm of pharynx, unspecified; I51.81 Takotsubo syndrome; I10 Essential (primary) hypertension; M19.90 Unspecified osteoarthritis, unspecified site; J43.9 Emphysema, unspecified; E03.9 Hypothyroidism, unspecified; I34.1 Nonrheumatic mitral (valve) prolapse; G35 Multiple sclerosis; I65.23 Occlusion and stenosis of bilateral carotid arteries; F17.210 Nicotine dependence, cigarettes, uncomplicated
CPT/HCPCS: 99281